=== PATIENT | female | born 2000 | race Caucasian/White ===

== ENCOUNTER → 2022-10-25 | Outpatient (CLI) | payer OTHER, SELFPAY ==
[2022-10-29 00:07] LABS: Chlamydia By Nucleic Acid AMP Negative (Negative); Gonococcus By Nucleic Acid AMP Negative (Negative)
== END | disposition home or self-care (01) ==
LOC: LABSPEC 16:00
PROVIDERS: Referring Provider Obstetrics & Gynecology; Visit Provider Obstetrics & Gynecology
DX: Z34.90 Encounter for supervision of normal pregnancy, unspecified, unspecified trimester (principal); Z3A.00 Weeks of gestation of pregnancy not specified
CPT/HCPCS: 87086; 87088; 87491; 87591

== ENCOUNTER → 2022-11-22 | Outpatient (CLI) | payer OTHER, SELFPAY ==
[2022-11-22 17:17] LABS: Absolute Lymphocyte Count 3.55 X10^3/uL (0.83-4.51); Absolute Neutrophil Count 8.1 X10^3/uL (2.0-7.7); Basophil# 0.03 X10^3/uL; Basophil% 0.2 % (0-1); Eosinophil# 0.15 X10^3/uL; Eosinophils% 1.2 % (0-5); Hematocrit 42.5 % (37-47); Lymphocyte # 3.55 X10^3/ul (0.83-4.51); Lymphocyte % 28.3 % (19-41); Mean Corp Hgb Conc 32.9 g/dL (32-36); Mean Corpuscular Hgb 28.3 pg (27.0-32.0); Mean Corpuscular Volume 85.9 fL (81-99); Mean Platelet Vol. 10.2 fl (6.2-12.0); Monocyte# 0.71 X10^3/uL; Monocyte% 5.7 % (0-10); NRBC Flagged by Analyzer 0 % (0-5); Neutrophil # 8.05 X10^3/uL (2.7-7.7); Neutrophil % 64.3 % (47-70); Platelet Count 285 K/mm3 (150-450); RBC Distribution Width CV 12.8 % (11.6-14.6); RBC Distribution Width SD 39.7 fl (35.1-43.9); Red Blood Count 4.95 M/mm3 (4.2-5.4); White Blood Count 12.5 K/mm3 (4.4-11.0)
[2022-11-22 19:04] LABS: HIV - WCH Non-Reactive (Nonreactive); Hepatitis B Surface Antigen Non-Reactive (Nonreactive); Hepatitis C Antibody Non-Reactive (Nonreactive); Rubella IgG Non-Reactive (Nonreactive); Syphilis Antibodies Non-reactive
== END | disposition home or self-care (01) ==
LOC: LAB 15:40
PROVIDERS: Referring Provider Obstetrics & Gynecology; Visit Provider Obstetrics & Gynecology
DX: Z34.90 Encounter for supervision of normal pregnancy, unspecified, unspecified trimester (principal); Z3A.00 Weeks of gestation of pregnancy not specified
CPT/HCPCS: 36415; 85025; 86703; 86762; 86780; 86803; 86850; 86900; 86901; 87340

== ENCOUNTER 2023-03-03 16:06 | Outpatient (CLI) | payer OTHER, SELFPAY ==
[2023-03-03 16:27] VITALS: BP 113/76; PULSE 79; PULSE 80; TEMP 36.9; O2SAT 100
--- NOTE | 2023-03-03 16:37 | US_ITS ---
STUDY: SECOND AND THIRD TRIMESTER OBSTETRICAL ULTRASOUND - LIMITED REASON FOR EXAM: Female, 22 years old well being LMP: Not provided. PRIOR ULTRASOUND: No relevant prior comparison study available TECHNIQUE: Transabdominal and Transvaginal sonographic evaluation of the pelvis. TECHNICAL QUALITY: Adequate. FINDINGS: There is a single intrauterine fetus. The fetus is in a cephalic presentation. There is demonstrated cardiac activity with a heart rate of 141 bpm. There is a normal amniotic fluid volume. The largest amniotic fluid pocket measures 5.7 cm. The amniotic fluid index (JARED) is 16.3 cm. The placenta is posterior and low lying but not previa in location. This is 1.8 cm from the cervix. Grade 1 placenta. The cervix measures 3.8 cm in length. BIOMETRY: Not performed. IMPRESSION: Single live intrauterine with normal amniotic fluid index. Posterior low-lying placenta measuring 1.8 cm from the cervix. Electronically Signed: Rajesh Matthews MD at 18:36 EDT , STUDY: SECOND AND THIRD TRIMESTER OBSTETRICAL ULTRASOUND - LIMITED REASON FOR EXAM: Female, 22 years old well being LMP: Not provided. PRIOR ULTRASOUND: No relevant prior comparison study available TECHNIQUE: Transabdominal and Transvaginal sonographic evaluation of the pelvis. TECHNICAL QUALITY: Adequate. FINDINGS: There is a single intrauterine fetus. The fetus is in a cephalic presentation. There is demonstrated cardiac activity with a heart rate of 141 bpm. There is a normal amniotic fluid volume. The largest amniotic fluid pocket measures 5.7 cm. The amniotic fluid index (JARED) is 16.3 cm. The placenta is posterior and low lying but not previa in location. This is 1.8 cm from the cervix. Grade 1 placenta. The cervix measures 3.8 cm in length. BIOMETRY: Not performed. US/OB Limited (No Biometrics) IMPRESSION: Single live intrauterine with normal amniotic fluid index. Posterior low-lying placenta measuring 1.8 cm from the cervix. Electronically Signed: Rajesh Matthews MD at 18:37 EDT ,
[2023-03-03 16:41] VITALS: BMI 23.2
[2023-03-03 16:54] LABS: Mucous, Urine 0 SEEN /hpf (<or=2+); Red Blood Cells-Urine 0 SEEN /hpf (0-5)
[2023-03-03 17:08] LABS: Color, Urine Yellow (Yellow); Glucose, Dipstick Normal (Normal); Ketone-Dipstick Negative (Negative); Leukocyte Esterase-Dipstick 25 /ul (Negative); Nitrite-Dipstick Negative (Negative); Occult Blood-Urine 250 /ul (Negative); Protein-Dipstick 30 mg/dl (Negative); Specific Gravity, Urine 1.025 (1.002-1.030); Urine Bilirubin Dipstick Negative (Negative); Urine Clarity Sl. Cloudy (Clear); Urine Urobilinogen Normal (Normal)
[2023-03-03 17:14] LABS: White Blood Cells 0-5 SEEN /hpf (0-5)
[2023-03-03 17:15] LABS: Bacteria 1+ /hpf (None Seen); Squamous Epithelial Cells - UA 5-10 SEEN /hpf (5-10)
--- NOTE | 2023-03-03 17:27 | OB.TRI.NOTE ---
HPI - General HPI Narrative SUZANNA BAUM, is a 22 y/o G1 P) @ 26 weeks 0d who presents to L&D with brown vaginal discharge after having sex today. She has a known placental previa and has been instructed to avoid intercourse earlier in her until a repeat ultrasound could be performed at 28 weeks. Ultrasound was ordered to look at the placental location Maternal Data Information NETTE Calculator Estimated Delivery Date Method Current WG Current Estimate 06/09/23 Ultrasound #1 26w 0d Other Estimates 06/06/23 LMP (Uncertain) 26w 3d PFSH PFSH Medical History (Updated 03/03/23 @ 17:[address] Daniella Bourgeois, DO) Placenta previa Home Medications PNV 153-FA 400 mcg-om3 35 mg-dha 25 mg-epa 5 mg-fish oil chew tablet tab PO 10/25/22 [History Last Taken 03/02/23] Allergy/AdvReac Type Severity Reaction Status Date / Time Penicillins Allergy Intermediate Hives Verified 03/03/23 16:40 prednisone AdvReac Other Verified 03/03/23 16:40 Family History Grandmother Breast cancer, Onset Age: 70 Maternal Great Grandma Diabetes Paternal Mother Family history of recurrent miscarriage Surgical History H/O arthroscopic knee surgery Social History adopted: No household members: significant other and family housing: house current occupational status: employed 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 pets and animals: Yes (not managing litterbox) pets and animals: cat(s) history of recent travel: No sexually active: Yes Smoking Status: Never smoker alcohol intake: never substance use type: does not use diet: lactose free well-balanced diet: rarely or never caffeine: Yes Type: coffee Number of servings: 1 eating out: 1-3 times/week during the past year weight has: remained stable what type of physical activity do you participate in: none leanna/mormon: None seatbelt use: sometimes do you feel safe at home: Yes additional social history: BF- Julio Cesar- [employer] History 1 Elective abortions Hx Para 0 Spontaneous abortions Hx # Term Pregnancies Ectopic pregnancies Hx # Pregnancies Multiple births # of living children Visit Details Expected Delivery Route/Plan Labor Preferences- CB/BF classes: [] labor support person: [] labor intervention preferences: [] pain management options preferred: [] cut cord/dad catch: [] : [] PP control planned: [] discussed possible routes of delivery and associated risks: [] special requests: [] Plans Covid status: [] Flu vaccine: [] Tdap vaccine: [] Rhogam: [] LARC form signed: [] Problem list reviewed and updated with the most current plan of care details and appropriate orders placed. Relevant counseling for the gestational age provided. Continue routine care and follow up unless otherwise noted in visit notes/problem list details OB Flowsheet Initial Weight: Not Recorded Date <del>?</del> EGA Weight BP Urine Prot <del>?</del> Glucose FHR FuHt Pres Dilation <del>?</del> Effaced St Visit Note 10/25/22 <del>?</del> 7w 4d 114 lb 128/83 Negative <del>?</del> Negative 170 <del>?</del> SM- CRL 1.3 cm NETTE determined because patient unsure of lmp 11/22/22 <del>?</del> 11w 4d 112 lb 4 oz 120/78 <del>?</del> 160 <del>?</del> SM- no vb cramping 12/20/22 <del>?</del> 15w 4d 115 lb 2 oz 129/78 Negative <del>?</del> Negative 154 <del>?</del> JV- bedside scan done today for patient request. no complaints. has anatomy scan scheduled. 01/17/23 <del>?</del> 19w 4d 116 lb 6 oz 111/67 Negative <del>?</del> Negative 140 <del>?</del> LC- no vb/lof. previa. work note provided for limitations. 02/28/23 <del>?</del> 25w 4d 129 lb 6 oz Negative <del>?</del> Negative 135 25 <del>?</del> LC- no lof/ctx/vb. good fm. no concerns today. will use fresh test for glucose. ROS Constitutional Constitutional: Reports systems reviewed and no addt'l complaints, except as documented Gastrointestinal Gastrointestinal: Denies bloating, constipation, cramping, diarrhea, nausea or vomiting Genitourinary Genitourinary: Reports other Details: Denies vaginal odor, vaginal bleeding, or vaginal discharge ; Denies difficulty urinating or flank pain Physical Exam HEENT normocephalic Resp normal respiratory effort and normal air movement no CVA tenderness Speculum Exam - Vagina: other dark brown blood that is clotted is present in the vagina. cervix closed an no bleeding coming from the cervix. Extremity normal to inspection General Extremity: edema bilateral (trace ) NST FHR Rate Baby A Baseline: 140 Variability:: Moderate Accelerations:: 15 x 15 Decelerations:: None NST Reactive:: Yes FHR Category:: Category I Assessment & Plan (1) Vaginal bleeding in patient after first trimester with placenta previa: (2) Placenta previa: COMMENT: posterior, grade 0. Repeat US @ 28 wks(03/18) (3) Rubella non-immune status, antepartum: COMMENT: offer MMR PP (4) Anxiety: COMMENT: no meds, counseling encouraged. (5) Supervision of high-risk : COMMENT: , NETTE 06/06/23 BF-Julio Cesar (6) : QUALIFIERS: Weeks of gestation: 25 weeks Qualified Code(s): Z3A.25 - 25 weeks gestation of COMMENT: nl anatomy, discussed genetic & carrier testing PLAN: Plan ultrasound shows the placental edge 1.61 cm from the cervix, cervix closed and 3.75 cm long spec exam is reassuring. no active bleeding present, one brown blood clot removed from vagina. plan to give celestone x 2 and bedrest at home for 24 hours. return to hospital if develops bright red bleeding or cramping. Charges/Coding Multi Select Codes Visit Charges Office Visit/Consults: 42993 OV L3 Est Urinary/Genital Urinary/Genital CPT Codes: 95252-41 non-stress test Interp
[2023-03-03] MEDS: Betamethasone/Betamethasone 30 MG/5 ML Vial 12 MG IM (18:10)
== END 2023-03-03 18:19 | disposition home or self-care (01) ==
LOC: WPOUT 16:08 → WP 16:08
PROVIDERS: Obstetrics & Gynecology; Referring Provider Registered Nurse; Visit Provider Registered Nurse
DX: O99.891 Other specified diseases and conditions complicating pregnancy (principal); N89.8 Other specified noninflammatory disorders of vagina; Z3A.26 26 weeks gestation of pregnancy; O44.02 Complete placenta previa NOS or without hemorrhage, second trimester; O99.342 Other mental disorders complicating pregnancy, second trimester; F41.9 Anxiety disorder, unspecified
CPT/HCPCS: 59025; 59050; 76815; 76817; 81001; 87086; 96372; J0702

== ENCOUNTER 2023-03-04 16:23 | Outpatient (CLI) | payer OTHER, SELFPAY ==
[2023-03-04 16:39] VITALS: BP 114/69; PULSE 82; TEMP 36.7
[2023-03-04 16:40] VITALS: BMI 23.3
[2023-03-04] MEDS: Betamethasone/Betamethasone 30 MG/5 ML Vial 12 MG IM (16:48)
--- NOTE | 2023-03-04 18:57 | OB.TRI.PN ---
Progress Notes Date of Service: 03/04/23 Progress Note: Hyun Kumar 22yr old female here for second dose of IM celestone injection Charges/Coding Multi Select Codes Urinary/Genital Urinary/Genital CPT Codes: No Charge Assessment & Plan (1) Vaginal bleeding in patient after first trimester with placenta previa: COMMENT: celestone given 03/03 and 03/04 (2) Placenta previa: COMMENT: posterior, grade 0. Repeat US @ 28 wks(03/18) (3) Rubella non-immune status, antepartum: COMMENT: offer MMR PP (4) Anxiety: COMMENT: no meds, counseling encouraged. (5) Supervision of high-risk : COMMENT: , NETTE 06/06/23 Pam (6) : QUALIFIERS: Weeks of gestation: 25 weeks Qualified Code(s): Z3A.25 - 25 weeks gestation of COMMENT: nl anatomy, discussed genetic & carrier testing
== END 2023-03-04 16:51 | disposition home or self-care (01) ==
LOC: WPOUT 16:28 → WP 16:28
PROVIDERS: Referring Provider Advanced Practice Midwife; Visit Provider Advanced Practice Midwife
DX: O44.02 Complete placenta previa NOS or without hemorrhage, second trimester (principal); Z3A.25 25 weeks gestation of pregnancy; O99.342 Other mental disorders complicating pregnancy, second trimester; F41.9 Anxiety disorder, unspecified
CPT/HCPCS: 96372; J0702

== ENCOUNTER → 2023-03-21 | Outpatient (CLI) | payer OTHER, SELFPAY ==
[2023-03-21 08:41] LABS: Absolute Lymphocyte Count 2.47 X10^3/uL (0.83-4.51); Absolute Neutrophil Count 6.3 X10^3/uL (2.0-7.7); Basophil# 0.02 X10^3/uL; Basophil% 0.2 % (0-1); Eosinophil# 0.11 X10^3/uL; Eosinophils% 1.2 % (0-5); Hematocrit 36.9 % (37-47); Hemoglobin 11.9 g/dL (12.0-15.0); Lymphocyte # 2.47 X10^3/ul (0.83-4.51); Lymphocyte % 26.3 % (19-41); Mean Corp Hgb Conc 32.2 g/dL (32-36); Mean Corpuscular Hgb 28.5 pg (27.0-32.0); Mean Corpuscular Volume 88.5 fL (81-99); Mean Platelet Vol. 9.9 fl (6.2-12.0); Monocyte# 0.46 X10^3/uL; Monocyte% 4.9 % (0-10); NRBC Flagged by Analyzer 0 % (0-5); Neutrophil # 6.26 X10^3/uL (2.7-7.7); Neutrophil % 66.8 % (47-70); Platelet Count 216 K/mm3 (150-450); RBC Distribution Width CV 13.9 % (11.6-14.6); RBC Distribution Width SD 44.6 fl (35.1-43.9); Red Blood Count 4.17 M/mm3 (4.2-5.4); White Blood Count 9.4 K/mm3 (4.4-11.0)
[2023-03-21 09:09] LABS: Glucose Challenge Gest 1H 50g 111 mg/dL (70-140)
[2023-03-21 09:58] LABS: HIV - WCH Non-Reactive (Nonreactive); Syphilis Antibodies Non-reactive
== END | disposition home or self-care (01) ==
PROVIDERS: Referring Provider Registered Nurse; Visit Provider Registered Nurse
DX: Z34.90 Encounter for supervision of normal pregnancy, unspecified, unspecified trimester (principal); Z3A.00 Weeks of gestation of pregnancy not specified
CPT/HCPCS: 36415; 82950; 85025; 86703; 86780; 86850; 86900; 86901

== ENCOUNTER → 2023-05-16 | Outpatient (CLI) | payer OTHER, SELFPAY ==
--- OUTSIDE RECORDS SUMMARY | 2023-05-16 15:21 | XMS RPT_ITS | CCD ---
Author Name Unknown Address [address] [place] [address] Organization [facility] Care Team Providers Care Scalper Operator Name Role Phone Francie Ibarra Unavailable Unavailable Francie Ibarra Unavailable Unavailable Francie Ibarra Unavailable Unavailable Glenny Luong Unavailable Unavailable BRUCE HELLER Attending Unavailab Dow, PHYSICIAN Primary Care Unavailable Sheron Mcduffie Unavailable Glenny Luong Unavailable [phone] Francie Ibarra Unavailable Keyla Weston Unavailable Unavailable Gaston Holt Unavailable Unavailable Unavailable Primary Care Provider UnavailJerry Wan Unavailable Ms. Gaston Holt Attending Chris Luong, MsMatteo [place] [facility] Unav ailable Jonathon, Ms. Gaston Navarrete Attending Chris Luong, MsMatteo [place] [facility] Unav ailable Dr. Jerry Underwood Attending Unavail able Cherise, MsMatteo [facility] Primary Care Unav ailable DALLAS DAVIS Referring UnavailTRUDI Hood Attending Unavailable DALLAS DAVIS Referring UnavailDALLAS Ramey Attending Unavailsanjeev e Allergies Allergy Classification Reported Allergen(s) Allergy Type Date of Onset Reaction(s) Facility (4 sources) apis mellifera venom allergy to substance [facility] Work Phone: (8 sources) predniSONE; Translations: [PREDNISONE] Drug Allergy 05-22-2021 Unknown [facility] Repository (3 sources) Penicillin Drug Allergy Other [facility] Medications Current Medications Medication Drug Class(es) Dates Sig (Normalized) Sig (Original) oral control (1 source) oral contr ol Quantity: 0 Refills: 0 Ordered: 02-May-2022 Deysi Asher Generic Substitution Allowed vitamin (1 source) vitamin Quantity: 0 Refills: 0 Ordered: 16-Oct-2022 Deysi Asher Generic Substitution Allowed Completed/Discontinued Medications Medication Drug Class(es) Dates Sig (Normalized) Sig (Original) ascorbic acid 500 mg oral capsule (1 source) Vitamin C take 1 capsule by mouth once daily Vitamin C 500 MG Oral Capsule Take 1 daily Refills: 0 DO Active Biotin (1 source) Biotin TABS Refi lls: 0 DO Active Calcium (1 source) Phosphate Binder, Calcium Calcium TABS Refills : 0 DO Active calcium carbonate 500 mg chewable tablet (3 sources) Tums 500 MG Oral Tablet Chewable Refills: 0 DO Active Ortho Tri-Cyclen (28) 0.18/0.215/0.25 MG-35 MCG TABS (1 source) Progestin, Estrogen Ortho Tri-Cyclen (28 ) 0.18/0.215/0.25 MG-35 MCG TABS Refills: 0 Active 1 ml medroxyPROGESTERone acetate 150 mg/ml injection (4 sources) Progestin Start: 02-16-20 inject 1 mL by intramuscular injection every three months MedroxyPROGESTERone Acetate 150 MG/ML Intramuscular Suspension INJECT 1 ML INTRAMUSCULARLY ONCE EVERY 3 MONTHS. Quantity: 1 Refills: 3 Francie Frausto Start : 15-Feb-2019 Active Milliliter nitrofurantoin, macrocrystals 25 mg / nitrofurantoin, monohydrate 75 mg oral capsule (1 source) Nitrofuran Antibacterial Start: 10-17-19 End: 10-23-19 take 1 capsule by mouth twice daily at mealtime Macrobid 100 mg oral capsule ; 1 cap(s) orally 2 times a day Quantity: 14 Refills: 0 Ordered: 16-Oct-2022 Gaston Holt Start: 16-Oct-2022 End: 22-Oct-2022 Generic Substitution Allowed Comments: Finish all this medication unless otherwise directed by prescriber.May discolor urine or feces.Take with food or milk. Problems Active Problems Problem Classification Problem Date Documented Date Episodic/Chronic Abdominal pain (1 source) Unspecified abdominal pain; Translations: [Unspecified abdominal pain] Onset: 10-16-2022 Episodic Anxiety disorders (4 sources) Anxiety disorder; Translations: [Anxiety disorder] Chronic Conditions associated with dizziness or vertigo (3 sources) Dizziness; Translations: [Dizziness and giddiness] 09-27-2021 Episodic Contraceptive and procreative management (3 sources) Contraception status; Translations: [Encounter for female control] Episodic Genitourinary symptoms and ill-defined conditions (1 source) Dysuria; Translations: [Dysuria] Onset: 10-16-2022 Episodic Headache; including migraine (4 sources) Refractory migraine without aura; Translations: [Intractable common migraine without aura] Chronic Headache; including migraine (1 source) Headache; including migraine; Translations: [Headache, unspecified] Onset: 05-02-2022 Menstrual disorders (4 sources) Menorrhagia; Translations: [Menorrhagia] Chronic Miscellaneous mental health disorders (1 source) Insomnia disorder related to another mental disorder; 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 Nausea and vomiting (1 source) Nausea; Translations: [Nausea] Onset: 10-16-2022 Episodic Nonspecific chest pain (2 sources) Chest pain; Translations: [Chest pain, unspecified] 11-25-2022 Episodic Other circulatory disease (1 source) Raynaud's phenomenon ; Translations: [Primary Raynaud's phenomenon] Chronic Other complications of (2 sources) Other specified related conditions, first trimester; Translations: [Oth related conditions, first trimester] Onset: 10-16-2022 Episodic Other connective tissue disease (4 sources) Synovial plica of knee; Translations: [Plica syndrome of knee] Episodic Other upper respiratory infections (2 sources) Acute upper respiratory infection; Translations: [Acute upper respiratory infections of unspecified site] 05-02-2022 Episodic Residual codes; unclassified (1 source) Less than 8 weeks gestation of ; Translations: [Less than 8 weeks gestation of ] Onset: 10-16-2022 Episodic Unclassified (2 sources) DIZZY 09-27-2021 Past or Other Problems Problem Classification Problem Date Documented Date Episodic/Chronic Influenza (1 source) Influenza due to other identified influenza virus with other respiratory manifestations; Translations: [Flu due to oth ident influenza virus w oth resp manifest] Onset: 05-02-2022 Episodic Malaise and fatigue (2 sources) Other malaise; Translations: [Other malaise] Onset: 05-02-2022 Episodic Other and unspecified benign neoplasm (4 sources) Multiple fibroadenomas of breast; Translations: [Multiple fibroadenomata of breast] NEGATED: Highlighted row has not occurred!Residual codes; unclassified (8 sources) Disease Episodic Results Test Name Value Interpretation Reference Range Facil ity Vital Signs Date Time Vital Sign Value Performing Clinician Facility 05-02-2022 12:58-0500 Body height 165 cm Sheron Mcduffie Other Phone: [facility] 05-02-2022 12:58-0500 Body temperature 98.78 [degF] Sheron Mcduffie Other Phone: [facility] 05-02-2022 12:58-0500 Diastolic blood pressure 82 mm[Hg] Sheron Mcduffie Other Phone: [facility] 05-02-2022 12:58-0500 Heart rate 100 /min Sheron Mcduffie Other Phone: [facility] 05-02-2022 12:58-0500 Respiratory rate 14 /min Sheron Mcduffie Other Phone: [facility] 05-02-2022 12:58-0500 SaO2% (BldA) [Mass fraction] 99 % Sheron Mcduffie Other Phone: [facility] 05-02-2022 12:58-0500 Systolic blood pressure 115 mm[Hg] Sheron Mcduffie Other Phone: [facility] 09-27-2021 19:47-0400 Body height 160 cm Sheron Mcduffie Other Phone: [facility] 09-27-2021 19:47-0400 Body temperature 98.06 [degF] Sheron Mcduffie Other Phone: [facility] 09-27-2021 19:47-0400 Diastolic blood pressure 84 mm[Hg] Sheron Mcduffie Other Phone: [facility] 09-27-2021 19:47-0400 Heart rate 78 /min Sheron Mcduffie Other Phone: [facility] 09-27-2021 19:47-0400 SaO2% (BldA) [Mass fraction] 100 % Sheron Mcduffie Other Phone: [facility] 09-27-2021 19:47-0400 Systolic blood pressure 148 mm[Hg] Sheron Mcduffie Other Phone: [facility] 07-19-2019 16:01-0400 BMI (Body Mass Index) 17.91 kg/m2 Francie Chatie [facility] Work Phone: 07-19-2019 16:01-0400 Body weight 48.08 kg Francierony Chatie [facility] Work Phone: 07-19-2019 16:01-0400 BP Diastolic 70 mm[Hg] Francie Chatie [facility] Work Phone: Encounters Encounter Date Encounter Type Care Provider Facility Start: 03-18-2023 End: 03-18-2023 ambulatory [facility] Start: 01-07-2023 End: 01-07-2023 ambulatory [facility] Start: 11-25-2022 End: 11-25-2022 Emergency department patient visit Jerry Underwood [facility] Emergency 01 Start: 10-28-2022 Telephone encounter Rukhsana carroll APRN.CNM Work Phone: OB/Gynecology Procedures Date Procedure Procedure Detail Performing Clinician Start: 07-19-2019 Follow-up visit Start: 03-12-2019 Follow-up visit Start: 02-15-2019 Follow-up visit Arthroscopy of knee Francie santos Plan of Treatment Date Care Activity Detail Author Start: 01-03-2023 Influenza vaccination INFLUENZ A (Season Ended) [facility] Start: 05-05-2022 DEPRESSION ASSESSMENT DEPRESSION ASS ESSMENT [facility] Start: 04-08-2022 Urine microalbumin profile DTAP,TDAP,TD (1 - Tdap) [facility] Start: 2020 CHLAMYDIA SCREENING (18-24) CHLAMYDIA SCREENING (18-24) [facility] Start: 2020 GC (GONORRHEA) SCREENING (18-24) GC (GONORRHEA) SCREENING (18-24) [facility] Start: 2020 HEPATITIS C SCREENING HEPATITIS C SC REENING [facility] Start: 2020 HIV SCREENING HIV SCREENING [facility] Start: 2016 PEDS TO ADULT TRANSITION ANNUAL ASSESSMENT PEDS TO ADULT TRANSITION ANNUAL ASSESSMENT [facility] Start: 2014 PEDS TO ADULT TRANSITION INITIAL DISCUSSION PEDS TO ADULT TRANSITION INITIAL DISCUSSION [facility] Start: 08-11-2011 HPV VACCINE (1 - 2-d ose series) HPV VACCINE (1 - 2-dose series) [facility] Start: 02-09-2003 COVID-19 VACCINE (#1) COVID-19 VACCI NE (#1) [facility] Start: 2002 HEPATITIS B (1 of 3 - 3-dose series) HEPATITIS B (1 of 3 - 3-dose series) [facility] Work Phone: NEGATED: Highlighted row has been ruled out! Planned Goals not documented [facility] Work Phone: Immunizations Immunization Date Immunization Notes Care Provider Alysha nguyen 01-16-2019 influenza, seasonal, injectable Francie Ibarra [facility] Work Phone: 10-24-2015 human papilloma viru s vaccine, quadrivalent Francierony Chatie [facility] Security Operations Specialist al Medicine Work Phone: 07-31-2015 hepatitis A vaccine, unspecified formulation Francie Chatie [facility] Inte rnal Medicine Work Phone: 07-31-2015 human papilloma viru s vaccine, quadrivalent Francierony Chatie [facility] Special[facility] al Medicine Work Phone: 01-03-2015 hepatitis A vaccine, unspecified formulation Francie Chatie [facility] Work Phone: 01-03-2015 human papilloma viru s vaccine, quadrivalent Francie Ibarra [facility] Medicine Work Phone: 01-03-2015 meningococcal polysaccharide (groups A, C, Y and W-135) diphtheria toxoid conjugate vaccine (MCV4P) Francie Ibarra [facility] Work Phone: 06-14-2014 tetanus toxoid, redu sage diphtheria toxoid, and acellular pertussis vaccine, adsorbed Francie Ibarra [facility] Work Phone: 12-27-2007 measles, mumps and r ubella virus vaccine Francie Ibarra [facility] Work Phone: 08-11-2007 hepatitis B vaccine, adult dosage Francie Ibarra [facility] Work Phone: 06-09-2007 diphtheria, tetanus toxoids and acellular pertussis vaccine Francie Ibarra [facility] Work Phone: 06-09-2007 measles, mumps and r ubella virus vaccine Francie Ibarra [facility] Work Phone: 06-09-2007 poliovirus vaccine, inactivated Francie Ibarra [facility] Work Phone: 06-09-2007 varicella virus vaccine Francie angel [facility] Work Phone: 03-19-2004 pneumococcal conjuga te vaccine, 13 valent Francie Ibarra [facility] Work Phone: 01-02-2004 pneumococcal conjuga te vaccine, 13 valent Francie Ibarra [facility] Medicine Work Phone: 12-27-2003 diphtheria, tetanus toxoids and acellular pertussis vaccine Francie Ibarra [facility] Work Phone: 12-27-2003 haemophilus influenz ae type b vaccine, PRP-OMP conjugate Francie Ibarra [facility] Work Phone: 08-16-2003 diphtheria, tetanus toxoids and acellular pertussis vaccine Francie Ibarra [facility] Work Phone: 08-16-2003 haemophilus influenz ae type b vaccine, PRP-OMP conjugate Francie Ibarra [facility] Work Phone: 08-16-2003 hepatitis B vaccine, adult dosage Francie Ibarra [facility] Work Phone: 08-16-2003 poliovirus vaccine, inactivated Francie Ibarra [facility] Work Phone: 08-16-2003 varicella virus vaccine Francie angel [facility] Work Phone: 01-14-2003 diphtheria, tetanus toxoids and acellular pertussis vaccine Francie Ibarra [facility] Work Phone: 01-14-2003 haemophilus influenz ae type b vaccine, PRP-OMP conjugate Francie Ibarra [facility] Work Phone: 01-14-2003 poliovirus vaccine, inactivated Francie Ibarra [facility] Work Phone: 2002 diphtheria, tetanus toxoids and acellular pertussis vaccine Francie Ibarra [facility] Work Phone: 2002 haemophilus influenz ae type b vaccine, PRP-OMP conjugate Francie Ibarra [facility] Work Phone: 2002 hepatitis B vaccine, adult dosage Francie Ibarra [facility] Work Phone: 2002 poliovirus vaccine, inactivated Francie Ibarra [facility] Work Phone: Payers Date Payer Category Payer Private Health Insurance BEATRICE THOMAS [id number] 2022-Present [phone] [id number] [place] [id number] Open Access [id number] 2021 Worker's Compensation [id number] 2002 Unknown [id number] 2002 Unknown [id number] 2002 Unknown [id number] 2002 Unknown [id number] 2002 Unknown [id number] Unknown [id number] Private Health Insurance [id number] Unknown [employer] N\[employer] Social History Date Type Detail Facility Tobacco smoking consumption unknown [facility] Work Phone: Start: 2002 Sex Assigned At Not on file [facility] NEGATED: Highlighted row - - [facility] Work Phone: Functional Status Date Assessment Result Facility NEGATED: Highlighted row Functional performance Functional status health issues are not documented Disease [facility] Work Phone: Mental Status Date Assessment Result Facility NEGATED: Highlighted row Cognitive function [Interpretation] Cognitive status health issues are not documented Disease [facility] Work Phone: Note 10-28-2022 Telephone Encounter - Nimisha Luevano RN - 10/28/2022 3:36 PM EDT Note Date & Type Note Facility 10-28-2022 Miscellaneous Notes Formattin g of this note might be different from the original. Attempted to call patient for PNOB appointment but person answering phone said Hyun is busy, she cannot come to the phone right now . I was unsure if she was coming in or expecting a phone call. If patient comes in for PNOB visit , I will of course see her. If she calls back, I will try to work her back into the schedule documented in this encounter [facility] Summary Purpose Family History No Family History Records Found Grandfather Name Dates Details Family history of cardiac di sorder(V17.49, Z82.49) Status:Active Family history of hypertensi on(V17.49, Z82.49) Status:Active Grandmother Name Dates Details Family history of cardiac di sorder(V17.49, Z82.49) Status:Active Family history of hypertensi on(V17.49, Z82.49) Status:Active Family history of type 2 savage betes mellitus(V18.0, Z83.3) Status:Active great grandfather Name Dates Details Family history of Primary ma lignant neoplasm of brain(191.9, C71.9) Status:Active Grandparent Name Dates Details Family history of migraine h eadaches(V17.2, Z82.0) Status:Active aunt Name Dates Details Family history of Status:Active Family history of myocardial infarction(V17.3, Z82.49) Status:Active Mother Name Dates Details Family history of HPV infect ion(V18.8, Z83.1) Status:Active Father Name Dates Details Family history of migraine h eadaches(V17.2, Z82.0) Status:Active Family history of psychosis( V17.0, Z81.8) Status:Active Family history of Bipolar de pression(296.50, F31.9) Status:Active Brother Name Dates Details Family history of migraine h eadaches(V17.2, Z82.0) Status:Active Grandfather Name Dates Details Family history of type 2 savage betes mellitus(V18.0, Z83.3) Status:Active Family history of cardiac di sorder(V17.49, Z82.49) Status:Active Family history of hypertensi on(V17.49, Z82.49) Status:Active Grandmother Name Dates Details Family history of type 2 savage betes mellitus(V18.0, Z83.3) Status:Active Family history of cardiac di sorder(V17.49, Z82.49) Status:Active Family history of hypertensi on(V17.49, Z82.49) Status:Active great grandfather Name Dates Details Family history of Primary ma lignant neoplasm of brain(191.9, C71.9) Status:Active Grandparent Name Dates Details Family history of migraine h eadaches(V17.2, Z82.0) Status:Active aunt Name Dates Details Family history of Status:Active Family history of myocardial infarction(V17.3, Z82.49) Status:Active Mother Name Dates Details Family history of HPV infect ion(V18.8, Z83.1) Status:Active Father Name Dates Details Family history of migraine h eadaches(V17.2, Z82.0) Status:Active Family history of Bipolar de pression(296.50, F31.9) Status:Active Family history of psychosis( V17.0, Z81.8) Status:Active Brother Name Dates Details Family history of migraine h eadaches(V17.2, Z82.0) Status:Active Grandfather Name Dates Details Family history of cardiac di sorder(V17.49, Z82.49) Status:Active Family history of hypertensi on(V17.49, Z82.49) Status:Active Grandmother Name Dates Details Family history of cardiac di sorder(V17.49, Z82.49) Status:Active Family history of hypertensi on(V17.49, Z82.49) Status:Active Family history of type 2 savage betes mellitus(V18.0, Z83.3) Status:Active great grandfather Name Dates Details Family history of Primary ma lignant neoplasm of brain(191.9, C71.9) Status:Active Grandparent Name Dates Details Family history of migraine h eadaches(V17.2, Z82.0) Status:Active aunt Name Dates Details Family history of Status:Active Family history of myocardial infarction(V17.3, Z82.49) Status:Active Mother Name Dates Details Family history of HPV infect ion(V18.8, Z83.1) Status:Active Father Name Dates Details Family history of migraine h eadaches(V17.2, Z82.0) Status:Active Family history of psychosis( V17.0, Z81.8) Status:Active Family history of Bipolar de pression(296.50, F31.9) Status:Active Brother Name Dates Details Family history of migraine h eadaches(V17.2, Z82.0) Status:Active Grandfather Name Dates Details Family history of cardiac di sorder(V17.49, Z82.49) Status:Active Family history of hypertensi on(V17.49, Z82.49) Status:Active Family history of cerebrovas cular accident (CVA)(V17.1, Z82.3) Status:Active Grandmother Name Dates Details Family history of cardiac di sorder(V17.49, Z82.49) Status:Active Family history of hypertensi on(V17.49, Z82.49) Status:Active Family history of type 2 savage betes mellitus(V18.0, Z83.3) Status:Active great grandfather Name Dates Details Family history of Primary ma lignant neoplasm of brain(191.9, C71.9) Status:Active Grandparent Name Dates Details Family history of migraine h eadaches(V17.2, Z82.0) Status:Active aunt Name Dates Details Family history of Status:Active Family history of myocardial infarction(V17.3, Z82.49) Status:Active Mother Name Dates Details Family history of HPV infect ion(V18.8, Z83.1) Status:Active Father Name Dates Details Family history of migraine h eadaches(V17.2, Z82.0) Status:Active Family history of psychosis( V17.0, Z81.8) Status:Active Family history of Bipolar de pression(296.50, F31.9) Status:Active Brother Name Dates Details Family history of migraine h eadaches(V17.2, Z82.0) Status:Active Advance Directives No Advanced Directives Records FoundNo Advanced Directives Records FoundNo Advanced Directives Records FoundNo Advanced Directives Records FoundNo Advanced Directives Records FoundNo Advanced Directives Records FoundNo Advanced Directives Records Found Additional Source Comments INFORMATION SOURCE (unrecogn ized section and content) DATE CREATED AUTHOR AUTHOR'S ORGANIZ ATION 07/19/2019 [employer] DATE CREATED AUTHOR AUTHOR'S ORGANIZ ATION 06/06/2021 [facility] DATE CREATED AUTHOR AUTHOR'S ORGANIZ ATION 10/18/2022 [facility] DATE CREATED AUTHOR AUTHOR'S ORGANIZ ATION 10/29/2022 [facility] DATE CREATED AUTHOR AUTHOR'S ORGANIZ ATION 11/24/2022 [facility] DATE CREATED AUTHOR AUTHOR'S ORGANIZ ATION 03/19/2023 [facility] <item><item><item> Privacy Markings (unrecogniz ed section and content) Section Author: Chika Lloyd PROHIBITION ON REDISCLOSURE OF CONFIDENTIAL INFORMATION This notice accompanies a disclosure of information concerning a client made to you with the consent of such client. Section Author: Chika Lloyd PROHIBITION ON REDISCLOSURE OF CONFIDENTIAL INFORMATION This notice accompanies a disclosure of information concerning a client made to you with the consent of such client. Section Author: Chika Lloyd PROHIBITION ON REDISCLOSURE OF CONFIDENTIAL INFORMATION This notice accompanies a disclosure of information concerning a client made to you with the consent of such client. Source Comments (unrecognize d section and content) In the event this informatio n is protected by the Federal Confidentiality of Alcohol and Drug Abuse Patient Records regulations: The Federal rules restrict any use of the information to criminally investigate or prosecute any alcohol or drug abuse patient.[facility] Reason for Visit (unrecogniz ed section and content) FOR RECORDS PERTAINING TO PATIENTS WHO ARE OR HAVE BEEN ENROLLED IN A CHEMICAL DEPENDENCY/SUBSTANCEABUSE PROGRAM, SOME INFORMATION MAY BE OMITTED. This clinical summary was aggregated from multiple sources. Caution should be exercised in using it in the provision of clinical care. This summary normalizes information from multiple sources, and as a consequence, information in this document may materially change the coding, format and clinical context of patient data. In addition, data may be omitted in some cases. CLINICAL DECISIONS SHOULD BE BASED ON THE PRIMARY CLINICAL RECORDS. [facility]. provides no warranty or guarantee of the accuracy or completeness of information in this document.
[2023-05-16 16:15] LABS: Group B Strep DNA By PCR Negative (Negative); Specimen Processing Control PASS
[2023-05-16 16:16] LABS: Internal Control PASS; Probe Check PASS
== END | disposition home or self-care (01) ==
LOC: LABSPEC 14:04
PROVIDERS: Referring Provider Obstetrics & Gynecology; Visit Provider Obstetrics & Gynecology
DX: Z34.90 Encounter for supervision of normal pregnancy, unspecified, unspecified trimester (principal); Z3A.00 Weeks of gestation of pregnancy not specified
CPT/HCPCS: 87077; 87081; 87653

== ENCOUNTER → 2023-05-30 | Outpatient (CLI) | payer OTHER, SELFPAY ==
--- NOTE | 2023-05-30 12:12 | US_ITS ---
STUDY: SECOND AND THIRD TRIMESTER OBSTETRICAL ULTRASOUND - LIMITED REASON FOR EXAM: Female, 22 years old measuring small for gestational age LMP: September 02, 2022. PRIOR ULTRASOUND: Comparison is made with prior study dated March 03, 2023. TECHNIQUE: Transabdominal TECHNICAL QUALITY: Adequate. FINDINGS: There is a single intrauterine fetus. The fetus is in a cephalic presentation. There is demonstrated cardiac activity with a heart rate of 129 bpm. There is a normal amniotic fluid volume. The largest amniotic fluid pocket measures 4.9 cm. The amniotic fluid index (JARED) is 12.03 cm. The placenta is left lateral in location and is not low lying. The previously seen previously is not seen at this time. There are Grade 2 placental changes. The cervical length was not measured due to the head positioning. BIOMETRY: BPD: 8.46 cm: 34 weeks, 0 days HC: 32.37 cm: 36 weeks, 4 days AC: 33.72 cm: 37 weeks, 4 days FL: 6.52 cm: 33 weeks, 4 days Age by LMP: 38 weeks, 4 days. NETTE by LMP: June 09, 2023. age by current US: 35 weeks, 3 days. NETTE by current US: July 01, 2023. Estimated weight: 2845 grams, +/- 427 grams, 12.8 percentile. US/OB Limited With Biometrics IMPRESSION: gestation. 12.8 percentile for weight. Electronically Signed: Lux Noble MD at 15:29 EST ,
--- OUTSIDE RECORDS SUMMARY | 2023-05-30 12:26 | XMS RPT_ITS | CCD ---
Author Name Unknown Address [address] [place] [address] Organization [facility] Care Team Providers Care Speech Therapist Early Intervention Name Role Phone Francie Ibarra Unavailable Unavailable Francie Ibarra Unavailable Unavailable Francie Ibarra Unavailable Unavailable Glenny Luong Unavailable Unavailable BRUCE HELLER Attending Unavailab Dow, PHYSICIAN Primary Care Unavailable Sheron Mcduffie Unavailable Glenny Luong Unavailable [phone] Francie Ibarra Unavailable Keyla Weston Unavailable Unavailable Gaston Holt Unavailable Unavailable Unavailable Primary Care Provider UnavailJerry Wan Unavailable Ms. Gaston Holt Attending Chris Luong, MsMatteo Murrieta [facility] Unav ailable Jonathon, Ms. Gaston Navarrete Attending Chris Luong, MsMatteo Murrieta [facility] Unav ailable Dr. Jerry Underwood Attending Unavail able Cherise, MsMatteo Murrieta [facility] Primary Care Unav ailable DALLAS DAVIS Referring UnavailTRUDI Hood Attending Unavailable DALLAS DAVIS Referring UnavailDALLAS Ramey Attending Unavailsanjeev e Allergies Allergy Classification Reported Allergen(s) Allergy Type Date of Onset Reaction(s) Facility (4 sources) apis mellifera venom allergy to substance [facility] Work Phone: (8 sources) predniSONE; Translations: [PREDNISONE] Drug Allergy 05-22-2021 Unknown [facility] Repository (3 sources) Penicillin Drug Allergy Other [facility] Medications Current Medications Medication Drug Class(es) [...] height 165 cm Sheron Mcduffie Other Phone: [facility] 05-02-2022 12:58-0500 Body temperature 98.78 [degF] Sheron Mcduffie Other Phone: [facility] 05-02-2022 12:58-0500 Diastolic blood pressure 82 mm[Hg] Sheron Mcduffie Other Phone: [facility] 05-02-2022 12:58-0500 Heart rate 100 /min Sheron Mcduffie Other Phone: [facility] 05-02-2022 12:58-0500 Respiratory rate 14 /min Sheron Mcduffie Other Phone: [facility] 05-02-2022 12:58-0500 SaO2% (BldA) [Mass fraction] 99 % Sheron Mcduffie Other Phone: [facility] 05-02-2022 12:58-0500 Systolic blood pressure 115 mm[Hg] Sheron Mcduffie Other Phone: [facility] 09-27-2021 19:47-0400 Body height 160 cm Sheron Mcduffie Other Phone: [facility] 09-27-2021 19:47-0400 Body temperature 98.06 [degF] Sheron Mcduffie Other Phone: [facility] 09-27-2021 19:47-0400 Diastolic blood pressure 84 mm[Hg] Sheron Mcduffie Other Phone: [facility] 09-27-2021 19:47-0400 Heart rate 78 /min Sheron Mcduffie Other Phone: [facility] 09-27-2021 19:47-0400 SaO2% (BldA) [Mass fraction] 100 % Sheron Mcduffie Other Phone: [facility] 09-27-2021 19:47-0400 Systolic blood pressure 148 mm[Hg] Sheron Mcduffie Other Phone: [facility] 07-19-2019 16:01-0400 BMI (Body Mass Index) 17.91 kg/m2 Francie Chatie [facility] Work Phone: 07-19-2019 16:01-0400 Body weight 48.08 kg Francierony Chatie [facility] Work Phone: 07-19-2019 16:01-0400 BP Diastolic 70 mm[Hg] Francie Chatie [facility] Work Phone: Encounters Encounter Date Encounter Type Care Provider Facility Start: 03-18-2023 End: 03-18-2023 ambulatory [facility] Start: 01-07-2023 End: 01-07-2023 ambulatory [facility] Start: 11-25-2022 End: 11-25-2022 Emergency department patient visit Jerry Underwood [facility] Emergency 01 Start: 10-28-2022 Telephone encounter Rukhsana carroll APRN.CNM Work Phone: OB/Gynecology Procedures Date Procedure Procedure Detail Performing Clinician Start: 07-19-2019 Follow-up visit Start: 03-12-2019 Follow-up visit Start: 02-15-2019 Follow-up visit Arthroscopy of knee Francie santos Plan of Treatment Date Care Activity Detail Author Start: 01-03-2023 Influenza vaccination INFLUENZ A (Season Ended) [facility] Start: 05-05-2022 DEPRESSION ASSESSMENT DEPRESSION ASS ESSMENT [facility] Start: 04-08-2022 Urine microalbumin profile DTAP,TDAP,TD (1 - Tdap) [facility] Start: 2020 CHLAMYDIA SCREENING (18-24) CHLAMYDIA SCREENING (18-24) [facility] Start: 2020 GC (GONORRHEA) SCREENING (18-24) GC (GONORRHEA) SCREENING (18-24) [facility] Start: 2020 HEPATITIS C SCREENING HEPATITIS C SC REENING [facility] Start: 2020 HIV SCREENING HIV SCREENING [facility] Start: 2016 PEDS TO ADULT TRANSITION ANNUAL ASSESSMENT PEDS TO ADULT TRANSITION ANNUAL ASSESSMENT [facility] Start: 2014 PEDS TO ADULT TRANSITION INITIAL DISCUSSION PEDS TO ADULT TRANSITION INITIAL DISCUSSION [facility] Start: 08-11-2011 HPV VACCINE (1 - 2-d ose series) HPV VACCINE (1 - 2-dose series) [facility] Start: 02-09-2003 COVID-19 VACCINE (#1) COVID-19 VACCI NE (#1) [facility] Start: 2002 HEPATITIS B (1 of 3 - 3-dose series) HEPATITIS B (1 of 3 - 3-dose series) [facility] Work Phone: NEGATED: Highlighted row has been ruled out! Planned Goals not documented [facility] Work Phone: Immunizations Immunization Date Immunization Notes Care Provider Alysha nguyen 01-16-2019 influenza, seasonal, injectable Francie Ibarra [facility] Work Phone: 10-24-2015 human papilloma viru s vaccine, quadrivalent Francierony Chatie [facility] Inside [employer] Representative al Medicine Work Phone: 07-31-2015 hepatitis A vaccine, unspecified formulation Francie Chatie [facility] Inte rnal Medicine Work Phone: 07-31-2015 human papilloma viru s vaccine, quadrivalent Francierony Chatie [facility] [employer] Medicine Work Phone: 01-03-2015 hepatitis A vaccine, unspecified formulation Francie Chatie [facility] Inte rnal Medicine Work Phone: 01-03-2015 human papilloma viru s vaccine, quadrivalent Francie Ibarra [facility] Work Phone: 01-03-2015 meningococcal polysaccharide (groups A, C, Y and W-135) diphtheria toxoid conjugate vaccine (MCV4P) Francie Ibarra [facility] Work Phone: 06-14-2014 tetanus toxoid, redu sage diphtheria toxoid, and acellular pertussis vaccine, adsorbed Francie Ibarra [facility] Work Phone: 12-27-2007 measles, mumps and r ubella virus vaccine Francie Ibarra [facility] Work Phone: 08-11-2007 hepatitis B vaccine, adult dosage Francie Ibarra [facility] Work Phone: 06-09-2007 diphtheria, tetanus toxoids and acellular pertussis vaccine Francie Ibarra [facility] Work Phone: 06-09-2007 measles, mumps and r ubella virus vaccine Francie Ibarra [facility] Work Phone: 06-09-2007 poliovirus vaccine, inactivated Francie Ibarra [facility] Work Phone: 06-09-2007 varicella virus vaccine Francie angel [facility] Work Phone: 03-19-2004 pneumococcal conjuga te vaccine, 13 valent Francie Ibarra [facility] Work Phone: 01-02-2004 pneumococcal conjuga te vaccine, 13 valent Francie Ibarra [facility] Work Phone: 12-27-2003 diphtheria, tetanus toxoids and acellular pertussis vaccine Francie Ibarra [facility] Work Phone: 12-27-2003 haemophilus influenz ae type b vaccine, PRP-OMP conjugate Francie Ibarra [facility] Work Phone: 08-16-2003 diphtheria, tetanus toxoids and acellular pertussis vaccine Francie Ibarra [facility] Work Phone: 08-16-2003 haemophilus influenz ae type b vaccine, PRP-OMP conjugate Francie Ibarra [facility] Work Phone: 08-16-2003 hepatitis B vaccine, adult dosage Francie Ibarra [facility] Internal [facility] Work Phone: 08-16-2003 poliovirus vaccine, inactivated Francie Ibarra [facility] Work Phone: 08-16-2003 varicella virus vaccine Francie angel [facility] Work Phone: 01-14-2003 diphtheria, tetanus toxoids and acellular pertussis vaccine Francie Ibarra [facility] Work Phone: 01-14-2003 haemophilus influenz ae type b vaccine, PRP-OMP conjugate Francie Ibarra [facility] Internal [facility] Work Phone: 01-14-2003 poliovirus vaccine, inactivated Francie Ibarra [facility] Work Phone: 2002 diphtheria, tetanus toxoids and acellular pertussis vaccine Francie Ibarra [facility] Work Phone: 2002 haemophilus influenz ae type b vaccine, PRP-OMP conjugate Francie Ibarra [facility] Work Phone: 2002 hepatitis B vaccine, adult dosage Francie Ibarra [facility] Work Phone: 2002 poliovirus vaccine, inactivated Francie Ibarra [facility] Work Phone: Payers Date Payer Category Payer Private Health Insurance BEATRICE THOMAS [id number] 2022-Present [phone] [address] [place] [phone] Open Access [id number] 2021 Worker's Compensation [id number] 2002 Unknown [id number] 2002 Unknown [id number] 2002 Unknown [id number] 2002 Unknown [id number] 2002 Unknown [id number] Unknown [id number] Private Health Insurance [id number] Unknown [employer] N\[employer] Social History Date Type Detail Facility Tobacco smoking consumption unknown [facility] Work Phone: Start: 2002 Sex Assigned At Not on file [facility] NEGATED: Highlighted row - - [facility] Work Phone: Functional Status Date Assessment Result Facility NEGATED: Highlighted row Functional performance Functional status health issues are not documented Disease [facility] Work Phone: Mental Status Date Assessment Result Facility NEGATED: Highlighted row Cognitive function [Interpretation] Cognitive status health issues are not documented Disease [facility] Work Phone: Note 10-28-2022 Telephone Encounter - [...] DATE CREATED AUTHOR AUTHOR'S ORGANIZ ATION 07/19/2019 [employer] DATE CREATED AUTHOR AUTHOR'S ORGANIZ ATION 06/06/2021 [facility] DATE CREATED AUTHOR AUTHOR'S ORGANIZ ATION 10/18/2022 [facility] DATE CREATED AUTHOR AUTHOR'S ORGANIZ ATION 10/29/2022 [facility] DATE CREATED AUTHOR AUTHOR'S ORGANIZ ATION 11/24/2022 [facility] DATE CREATED AUTHOR AUTHOR'S ORGANIZ ATION 03/19/2023 [facility] <item><item><item> Privacy Markings (unrecogniz ed section and [...] or prosecute any alcohol or drug abuse patient.[facility] Reason for Visit (unrecogniz ed section and [...] BE BASED ON THE PRIMARY CLINICAL RECORDS. [facility]. provides no warranty or guarantee of the accuracy or completeness of information in this document.
== END | disposition home or self-care (01) ==
LOC: US 12:11
PROVIDERS: Referring Provider Obstetrics & Gynecology; Visit Provider Obstetrics & Gynecology
DX: O09.90 Supervision of high risk pregnancy, unspecified, unspecified trimester (principal); Z3A.00 Weeks of gestation of pregnancy not specified
CPT/HCPCS: 76816

== ENCOUNTER 2023-06-06 12:23 | Outpatient (CLI) | payer OTHER, SELFPAY ==
[2023-06-06] VITALS (10 sets, daily range): BP systolic 131–139; BP diastolic 79–84; PULSE 56–85; TEMP 36.3–36.6; O2SAT 91–100; BMI 26.2
--- OUTSIDE RECORDS SUMMARY | 2023-06-06 15:38 | XMS RPT_ITS | CCD ---
Author Name Unknown Address [address] [place] [address] Organization [facility] Care Team Providers Care Waiter/Waitress Name Role Phone Francie Ibarra Unavailable Unavailable Francie Ibarra Unavailable Unavailable Francie Ibarra Unavailable Unavailable Glenny Luong Unavailable Unavailable BRUCE HELLER Attending Unavailab Dow, PHYSICIAN Primary Care Unavailable Sheron Mcduffie Unavailable Glenny Luong Unavailable [phone] Francie Ibarra Unavailable Keyla Weston Unavailable Unavailable Gaston Holt Unavailable Unavailable Unavailable Primary Care Provider UnavailJerry Wan Unavailable Ms. Gaston Holt Attending Chris Luong, MsMatteo [place] [facility] Unav ailable Jonathon, Ms. Gaston Navarrete Attending Chris Luong, MsMatteo [place] Unav ailable Dr. Jerry Underwood Attending Unavail able Cherise, MsMatteo Murrieta [facility] Primary Care Unav ailable DALLAS DAVIS Referring UnavailTRUDI Hood Attending Unavailable DALLAS DAVIS Referring UnavailDALLAS Ramey Attending Unavailabl e Allergies Allergy Classification Reported Allergen(s) Allergy Type Date of Onset Reaction(s) Facility (4 sources) apis mellifera venom allergy to substance [facility] Work Phone: (8 sources) predniSONE; Translations: [PREDNISONE] Drug Allergy 05-22-2021 Unknown [facility] Repository (3 sources) Penicillin Drug Allergy Other [facility] Medications Current Medications Medication Drug Class(es) Dates [...] height 165 cm Sheron Mcduffie Other Phone: [facility] 05-02-2022 12:58-0500 Body temperature 98.78 [degF] Sheron Mcduffie Other Phone: [facility] 05-02-2022 12:58-0500 Diastolic blood pressure 82 mm[Hg] Sheron Mcduffie Other Phone: [facility] 05-02-2022 12:58-0500 Heart rate 100 /min Sheron Mcduffie Other Phone: [facility] 05-02-2022 12:58-0500 Respiratory rate 14 /min Sheron Mcduffie Other Phone: [facility] 05-02-2022 12:58-0500 SaO2% (BldA) [Mass fraction] 99 % Sheron Mcduffie Other Phone: [facility] 05-02-2022 12:58-0500 Systolic blood pressure 115 mm[Hg] Sheron Mcduffie Other Phone: [facility] 09-27-2021 19:47-0400 Body height 160 cm Sheron Mcduffie Other Phone: [facility] 09-27-2021 19:47-0400 Body temperature 98.06 [degF] Sheron Mcduffie Other Phone: [facility] 09-27-2021 19:47-0400 Diastolic blood pressure 84 mm[Hg] Sheron Mcduffie Other Phone: [facility] 09-27-2021 19:47-0400 Heart rate 78 /min Sheron Mcduffie Other Phone: [facility] 09-27-2021 19:47-0400 SaO2% (BldA) [Mass fraction] 100 % Sheron Mcduffie Other Phone: [facility] 09-27-2021 19:47-0400 Systolic blood pressure 148 mm[Hg] Sheron Mcduffie Other Phone: [facility] 07-19-2019 16:01-0400 BMI (Body Mass Index) 17.91 kg/m2 Francie Chatie [facility] Work Phone: 07-19-2019 16:01-0400 Body weight 48.08 kg Francierony Chatie [facility] Work Phone: 07-19-2019 16:01-0400 BP Diastolic 70 mm[Hg] Francie Chatie [facility] Work Phone: Encounters Encounter Date Encounter Type Care Provider Facility Start: 03-18-2023 End: 03-18-2023 ambulatory [facility] Start: 01-07-2023 End: 01-07-2023 ambulatory [facility] Start: 11-25-2022 End: 11-25-2022 Emergency department patient visit Jerry Underwood [facility] Emergency 01 Start: 10-28-2022 Telephone encounter Rukhsana carroll APRN.CNM Work Phone: OB/Gynecology Procedures Date Procedure Procedure Detail Performing Clinician Start: 07-19-2019 Follow-up visit Start: 03-12-2019 Follow-up visit Start: 02-15-2019 Follow-up visit Arthroscopy of knee Francie santos Plan of Treatment Date Care Activity Detail Author Start: 01-03-2023 Influenza vaccination INFLUENZ A (Season Ended) [facility] Start: 05-05-2022 DEPRESSION ASSESSMENT DEPRESSION ASS ESSMENT [facility] Start: 04-08-2022 Urine microalbumin profile DTAP,TDAP,TD (1 - Tdap) [facility] Start: 2020 CHLAMYDIA SCREENING (18-24) CHLAMYDIA SCREENING (18-24) [facility] Start: 2020 GC (GONORRHEA) SCREENING (18-24) GC (GONORRHEA) SCREENING (18-24) [facility] Start: 2020 HEPATITIS C SCREENING HEPATITIS C SC REENING [facility] Start: 2020 HIV SCREENING HIV SCREENING [facility] Start: 2016 PEDS TO ADULT TRANSITION ANNUAL ASSESSMENT PEDS TO ADULT TRANSITION ANNUAL ASSESSMENT [facility] Start: 2014 PEDS TO ADULT TRANSITION INITIAL DISCUSSION PEDS TO ADULT TRANSITION INITIAL DISCUSSION [facility] Start: 08-11-2011 HPV VACCINE (1 - 2-d ose series) HPV VACCINE (1 - 2-dose series) [facility] Start: 02-09-2003 COVID-19 VACCINE (#1) COVID-19 VACCI NE (#1) [facility] Start: 2002 HEPATITIS B (1 of 3 - 3-dose series) HEPATITIS B (1 of 3 - 3-dose series) [facility] Work Phone: NEGATED: Highlighted row has been ruled out! Planned Goals not documented [facility] Work Phone: Immunizations Immunization Date Immunization Notes Care Provider Alysha nguyen 01-16-2019 influenza, seasonal, injectable Francie Ibarra [facility] Work Phone: 10-24-2015 human papilloma viru s vaccine, quadrivalent Francierony Chatie [facility] [employer] Medicine Work Phone: 07-31-2015 hepatitis A vaccine, unspecified formulation Francie Chatie [facility] rnal Medicine Work Phone: 07-31-2015 human papilloma viru s vaccine, quadrivalent Francierony Chatie [facility] [employer] Medicine Work Phone: 01-03-2015 hepatitis A vaccine, unspecified formulation Francie Chatie [facility] Work Phone: 01-03-2015 human papilloma viru s vaccine, quadrivalent Francie Ibarra [facility] Work Phone: 01-03-2015 meningococcal polysaccharide (groups A, C, Y and W-135) diphtheria toxoid conjugate vaccine (MCV4P) Francie Ibarra [facility] Work Phone: 06-14-2014 tetanus toxoid, redu sage diphtheria toxoid, and acellular pertussis vaccine, adsorbed Francie Ibarra [facility] Work Phone: 12-27-2007 measles, mumps and r ubella virus vaccine Francie Ibarra [facility] Work Phone: 08-11-2007 hepatitis B vaccine, adult dosage Francie Ibarra [facility] Work Phone: 06-09-2007 diphtheria, tetanus toxoids and acellular pertussis vaccine Francie Ibarra [facility] Work Phone: 06-09-2007 measles, mumps and r ubella virus vaccine Francie Ibarra [facility] Work Phone: 06-09-2007 poliovirus vaccine, inactivated Francie Ibarra [facility] Work Phone: 06-09-2007 varicella virus vaccine Francie angel [facility] Work Phone: 03-19-2004 pneumococcal conjuga te vaccine, 13 valent Francie Ibarra [facility] Work Phone: 01-02-2004 pneumococcal conjuga te vaccine, 13 valent Francie Ibarra [facility] Work Phone: 12-27-2003 diphtheria, tetanus toxoids and acellular pertussis vaccine Francie Ibarra [facility] Work Phone: 12-27-2003 haemophilus influenz ae type b vaccine, PRP-OMP conjugate Francie Ibarra [facility] Work Phone: 08-16-2003 diphtheria, tetanus toxoids and acellular pertussis vaccine Francie Ibarra [facility] Work Phone: 08-16-2003 haemophilus influenz ae type b vaccine, PRP-OMP conjugate Francie Ibarra [facility] Work Phone: 08-16-2003 hepatitis B vaccine, adult dosage Francie Ibarra [facility] Work Phone: 08-16-2003 poliovirus vaccine, inactivated Francie Ibarra [facility] Work Phone: 08-16-2003 varicella virus vaccine Francie angel [facility] Work Phone: 01-14-2003 diphtheria, tetanus toxoids and acellular pertussis vaccine Francie Ibarra [facility] Work Phone: 01-14-2003 haemophilus influenz ae type b vaccine, PRP-OMP conjugate Francie Ibarra [facility] Work Phone: 01-14-2003 poliovirus vaccine, inactivated Francie Ibarra [facility] Work Phone: 2002 diphtheria, tetanus toxoids and acellular pertussis vaccine Francie Ibarra [facility] Work Phone: 2002 haemophilus influenz ae type b vaccine, PRP-OMP conjugate Francie Ibarra [facility] Work Phone: 2002 hepatitis B vaccine, adult dosage Francie Ibarra [facility] Work Phone: 2002 poliovirus vaccine, inactivated Francie Ibarra [facility] Work Phone: Payers Date Payer Category Payer Private Health Insurance BEATRICE THOMAS [id number] 2022-Present [phone] [address] [place] [id number] Open Access [id number] 2021 Worker's Compensation [id number] 2002 Unknown [id number] 2002 Unknown [id number] 2002 Unknown [id number] 2002 Unknown [id number] 2002 Unknown [id number] Unknown [id number] Private Health Insurance [id number] Unknown [employer] N\[employer] Social History Date Type Detail Facility Tobacco smoking consumption unknown [facility] Work Phone: Start: 2002 Sex Assigned At Not on file [facility] NEGATED: Highlighted row - - [facility] Work Phone: Functional Status Date Assessment Result Facility NEGATED: Highlighted row Functional performance Functional status health issues are not documented Disease [facility] Work Phone: Mental Status Date Assessment Result Facility NEGATED: Highlighted row Cognitive function [Interpretation] Cognitive status health issues are not documented Disease [facility] Work Phone: Note 10-28-2022 Telephone Encounter [...] DATE CREATED AUTHOR AUTHOR'S ORGANIZ ATION 07/19/2019 [employer] DATE CREATED AUTHOR AUTHOR'S ORGANIZ ATION 06/06/2021 [facility] DATE CREATED AUTHOR AUTHOR'S ORGANIZ ATION 10/18/2022 [facility] DATE CREATED AUTHOR AUTHOR'S ORGANIZ ATION 10/29/2022 [facility] DATE CREATED AUTHOR AUTHOR'S ORGANIZ ATION 11/24/2022 [facility] DATE CREATED AUTHOR AUTHOR'S ORGANIZ ATION 03/19/2023 [facility] <item><item><item> Privacy Markings (unrecogniz ed section and [...] or prosecute any alcohol or drug abuse patient.[facility] Reason for Visit (unrecogniz ed section [...] BE BASED ON THE PRIMARY CLINICAL RECORDS. [facility] [employer] [facility]. provides no warranty or guarantee of the accuracy or completeness of information in this document.
--- NOTE | 2023-06-07 10:53 | OB.TRI.PN_ITS ---
Progress Notes Date of Service: 06/06/23 Progress Note: Patient presents for triage evaluation secondary to uterine contractions FHT: 120 Moderate variability reactive no decelerations category I tracing [place]: 2-3 minute Contractions Assessment and plan: no cervical change, Reactive NST, reassuring maternal and status patient discharged to home to follow-up for IOL on Friday for SGA. See problem list details for additional plan information. Charges/Coding Multi Select Codes Urinary/Genital Urinary/Genital CPT Codes: 46381-28 non-stress test Interp Assessment & Plan (1) Uterine contractions: COMMENT: 06/06- no cervical change. D/C home (2) Small for gestational age fetus: COMMENT: measuring 12th%, deliver 40 weeks (3) Rubella non-immune status, antepartum: COMMENT: offer MMR PP (4) Anxiety: COMMENT: no meds, counseling encouraged. (5) Supervision of high-risk : COMMENT: PRR , NETTE 06/06/23 girl Donte Orozco (6) : QUALIFIERS: Weeks of gestation: 39 weeks Qualified Code(s): Z3A.39 - 39 weeks gestation of COMMENT: gbs neg, nl anatomy, discussed genetic & carrier testing, nl growth
== END 2023-06-06 15:45 | disposition home or self-care (01) ==
LOC: WPOUT 12:24 → WP 12:24
PROVIDERS: Referring Provider Advanced Practice Midwife; Visit Provider Advanced Practice Midwife
DX: O47.1 False labor at or after 37 completed weeks of gestation (principal); Z3A.39 39 weeks gestation of pregnancy
CPT/HCPCS: 59025; 59050

== ENCOUNTER 2023-06-09 06:55 | Inpatient (IN) | payer OTHER, SELFPAY ==
[2023-06-09] VITALS (44 sets, daily range): BP systolic 124–175; BP diastolic 64–101; PULSE 60–102; RESP 12–18; TEMP 36.3–37.3; O2SAT 88–100; BMI 26.6
--- NOTE | 2023-06-09 | PLAC_PTH ---
PATHOLOGY RESULTS PATIENT: SUZANNA BAUM LOC: WP U#:[id number] AGE/SX: 22/F ROOM: WP007 RE06/09/[address]: Dr. Daniella Bourgeois DO : 2000 BED: 1 DIS: 06/11/2023 SPEC #: [id number] RECD: 06/09/23 22:33 STATUS: SHARI SALLY #: [id number] MANDA: 06/09/23 00:[address]: Daniella Bourgeois DEPT: SURGICAL PATHOLOGY RECD BY: Leodan Lester ENTERED: 06/10/23 07:27 SP TYPE: PLACENTA OTHR DR: No Primary Care Phys Tissues: Placenta, NOS Procedures: Surgery Specimen Level V HEADER OPERATION: Primary section PRE-OP DIAGNOSIS: Placental abruption suspected TISSUE SUBMITTED: Placenta MICROSCOPIC DIAGNOSIS Miranda placenta (382 gm): Umbilical cord - trivascular with no evidence of inflammation. Placental membranes - no pathologic change. Placental disc - foci of organizing intraparenchymal hemorrhage, Ignacio-Acosta change and mildly increased intraparenchymal fibrin plaques. AM:marianne 06/12/2023 MICROSCOPIC DESCRIPTION Slides are reviewed. GROSS DESCRIPTION SPECIMEN: PLACENTA / CLINICAL INFORMATION: A. Weight: 3.01 kg B. Gestational Age: 40 weeks C. Sex: Female PLACENTAL WEIGHT (POST FIXATION): 382 gm PLACENTAL DIMENSIONS: 17.0 x 13.0 x 3.0 cm PLACENTAL SHAPE: Usual ovoid PLACENTAL WEIGHT FOR GESTATIONAL AGE: Within 10-99th percentile MEMBRANES - Present A. Insertion: Marginal B. Site of rupture from edge: 6.0 cm from edge of placental disc C. Color of membrane: Mancini-modi D. Abnormalities: None UMBILICAL CORD - Present A. Color: Mancini-modi B. Insertion: Paracentral C. Length: 30.0 cm D. Diameter: 1.2 cm E. Number of vessels: Three F. Abnormalities: None PLACENTAL DISC - Present A. Color of surface: Mancini-modi B. surface abnormalities: None C. Maternal cotyledons: Intact with minimal tears. It is partially disrupted, however, appears to be complete. D. Attached retro placental clot: No clot E. Cut surface: Dark red and spongy F. Lesions: Sections reveal a focal area of hemorrhage measuring 1.0 cm in greatest dimension. G. Separate clot: Absent SECTIONS SUBMITTED: 1. Membrane roll 2. Cord, maternal end 3. Cord, end 4. Placental disc, and maternal surfaces 5. Placental disc, and maternal surfaces, area of hemorrhage 6. Placental disc, and maternal surfaces, area of hemorrhage SALENA:marianne 06/11/2023 TC:5 CPT: 51054
--- OUTSIDE RECORDS SUMMARY | 2023-06-09 07:04 | XMS RPT_ITS | CCD ---
Author Name Unknown Address [address] [place] [address] Organization [facility] Care Team Providers Care Atm Servicer Name Role Phone Francie Ibarra Unavailable Unavailable Francie Ibarra Unavailable Unavailable Francie Ibarra Unavailable Unavailable Glenny Luong Unavailable Unavailable BRUCE HELLER Attending Unavailab Dow, PHYSICIAN Primary Care Unavailable Sheron Mcduffie Unavailable Glenny Luong Unavailable [phone] Francie Ibarra Unavailable Keyla Weston Unavailable Unavailable Gaston Holt Unavailable Unavailable Unavailable Primary Care Provider UnavailJerry Wan Unavailable Ms. Gaston Holt Attending Chris Luong, MsMatteo Murrieta [facility] Unav ailable Jonathon, Ms. Gaston Navarrete Attending Chris Luong, MsMatteo Murrieta [facility] Unav ailable Dr. Jerry Underwood Attending Unavail able Cherise, MsMatteo Murrieta [facility] Primary Care Unav ailable DALLAS DAVIS Referring UnavailTRUDI Hood Attending Unavailable DALLAS DAVIS Referring UnavailDALLAS Ramey Attending Unavailsanjeev e Allergies Allergy Classification Reported Allergen(s) Allergy Type Date of Onset Reaction(s) Facility (4 sources) apis mellifera venom allergy to substance [facility] Work Phone: (8 sources) predniSONE; Translations: [PREDNISONE] Drug Allergy 05-22-2021 Unknown [facility] Repository (3 sources) Penicillin Drug Allergy Other [facility] Medications Current Medications Medication Drug Class(es) [...] height 165 cm Sheron Mcduffie Other Phone: [facility] 05-02-2022 12:58-0500 Body temperature 98.78 [degF] Sheron Mcduffie Other Phone: [facility] 05-02-2022 12:58-0500 Diastolic blood pressure 82 mm[Hg] Sheron Mcduffie Other Phone: [facility] 05-02-2022 12:58-0500 Heart rate 100 /min Sheron Mcduffie Other Phone: [facility] 05-02-2022 12:58-0500 Respiratory rate 14 /min Sheron Mcduffie Other Phone: [facility] 05-02-2022 12:58-0500 SaO2% (BldA) [Mass fraction] 99 % Sheron Mcduffie Other Phone: [facility] 05-02-2022 12:58-0500 Systolic blood pressure 115 mm[Hg] Sheron Mcduffie Other Phone: [facility] 09-27-2021 19:47-0400 Body height 160 cm Sheron Mcduffie Other Phone: [facility] 09-27-2021 19:47-0400 Body temperature 98.06 [degF] Sheron Mcduffie Other Phone: [facility] 09-27-2021 19:47-0400 Diastolic blood pressure 84 mm[Hg] Sheron Mcduffie Other Phone: [facility] 09-27-2021 19:47-0400 Heart rate 78 /min Sheron Mcduffie Other Phone: [facility] 09-27-2021 19:47-0400 SaO2% (BldA) [Mass fraction] 100 % Sheron Mcduffie Other Phone: [facility] 09-27-2021 19:47-0400 Systolic blood pressure 148 mm[Hg] Sheron Mcduffie Other Phone: [facility] 07-19-2019 16:01-0400 BMI (Body Mass Index) 17.91 kg/m2 Francie Chatie [facility] Internal [facility] Work Phone: 07-19-2019 16:01-0400 Body weight 48.08 kg Francierony Chatie [facility] Internal Medicine Work Phone: 07-19-2019 16:01-0400 BP Diastolic 70 mm[Hg] Francie Chatie [facility] Work Phone: Encounters Encounter Date Encounter Type Care Provider Facility Start: 03-18-2023 End: 03-18-2023 ambulatory [facility] Start: 01-07-2023 End: 01-07-2023 ambulatory [facility] Start: 11-25-2022 End: 11-25-2022 Emergency department patient visit Jerry Underwood [facility] Emergency 01 Start: 10-28-2022 Telephone encounter Rukhsana carroll APRN.CNM Work Phone: OB/Gynecology Procedures Date Procedure Procedure Detail Performing Clinician Start: 07-19-2019 Follow-up visit Start: 03-12-2019 Follow-up visit Start: 02-15-2019 Follow-up visit Arthroscopy of knee Francie santos Plan of Treatment Date Care Activity Detail Author Start: 01-03-2023 Influenza vaccination INFLUENZ A (Season Ended) [facility] Start: 05-05-2022 DEPRESSION ASSESSMENT DEPRESSION ASS ESSMENT [facility] Start: 04-08-2022 Urine microalbumin profile DTAP,TDAP,TD (1 - Tdap) [facility] Start: 2020 CHLAMYDIA SCREENING (18-24) CHLAMYDIA SCREENING (18-24) [facility] Start: 2020 GC (GONORRHEA) SCREENING (18-24) GC (GONORRHEA) SCREENING (18-24) [facility] Start: 2020 HEPATITIS C SCREENING HEPATITIS C SC REENING [facility] Start: 2020 HIV SCREENING HIV SCREENING [facility] Start: 2016 PEDS TO ADULT TRANSITION ANNUAL ASSESSMENT PEDS TO ADULT TRANSITION ANNUAL ASSESSMENT [facility] Start: 2014 PEDS TO ADULT TRANSITION INITIAL DISCUSSION PEDS TO ADULT TRANSITION INITIAL DISCUSSION [facility] Start: 08-11-2011 HPV VACCINE (1 - 2-d ose series) HPV VACCINE (1 - 2-dose series) [facility] Start: 02-09-2003 COVID-19 VACCINE (#1) COVID-19 VACCI NE (#1) [facility] Start: 2002 HEPATITIS B (1 of 3 - 3-dose series) HEPATITIS B (1 of 3 - 3-dose series) [facility] Work Phone: NEGATED: Highlighted row has been ruled out! Planned Goals not documented [facility] Work Phone: Immunizations Immunization Date Immunization Notes Care Provider Alysha nguyen 01-16-2019 influenza, seasonal, injectable Francie Ibarra [facility] Internal Medicine Work Phone: 10-24-2015 human papilloma viru s vaccine, quadrivalent Francierony Chatie [facility] [facility] Work Phone: 07-31-2015 hepatitis A vaccine, unspecified formulation Francie Chatie [facility]nal Medicine Work Phone: 07-31-2015 human papilloma viru s vaccine, quadrivalent Francierony Chatie [facility] Work Phone: 01-03-2015 hepatitis A vaccine, unspecified formulation Francie Chatie [facility] Work Phone: 01-03-2015 human papilloma viru s vaccine, quadrivalent Francie Ibarra [facility] Work Phone: 01-03-2015 meningococcal polysaccharide (groups A, C, Y and W-135) diphtheria toxoid conjugate vaccine (MCV4P) Francie Ibarra [facility] Work Phone: 06-14-2014 tetanus toxoid, redu sage diphtheria toxoid, and acellular pertussis vaccine, adsorbed Francie Ibarra [facility] Work Phone: 12-27-2007 measles, mumps and r ubella virus vaccine Francie Ibarra [facility] Work Phone: 08-11-2007 hepatitis B vaccine, adult dosage Francie Ibarra [facility] Work Phone: 06-09-2007 diphtheria, tetanus toxoids and acellular pertussis vaccine Francie Ibarra [facility] Work Phone: 06-09-2007 measles, mumps and r ubella virus vaccine Francie Ibarra [facility] Work Phone: 06-09-2007 poliovirus vaccine, inactivated Francie Ibarra [facility] Work Phone: 06-09-2007 varicella virus vaccine Francie angel [facility] Work Phone: 03-19-2004 pneumococcal conjuga te vaccine, 13 valent Francie Ibarra [facility] Work Phone: 01-02-2004 pneumococcal conjuga te vaccine, 13 valent Francie Ibarra [facility] Medicine Work Phone: 12-27-2003 diphtheria, tetanus toxoids and acellular pertussis vaccine Francie Ibarra [facility] Work Phone: 12-27-2003 haemophilus influenz ae type b vaccine, PRP-OMP conjugate Francie Ibarra [facility] Work Phone: 08-16-2003 diphtheria, tetanus toxoids and acellular pertussis vaccine Francie Ibarra [facility] Work Phone: 08-16-2003 haemophilus influenz ae type b vaccine, PRP-OMP conjugate Francie Ibarra [facility] Work Phone: 08-16-2003 hepatitis B vaccine, adult dosage Francie Ibarra [facility] Internal [facility] Work Phone: 08-16-2003 poliovirus vaccine, inactivated Francie Ibarra [facility] Work Phone: 08-16-2003 varicella virus vaccine Francie angel [facility] Work Phone: 01-14-2003 diphtheria, tetanus toxoids and acellular pertussis vaccine Francie Ibarra [facility] Work Phone: 01-14-2003 haemophilus influenz ae type b vaccine, PRP-OMP conjugate Francie Ibarra [facility] Work Phone: 01-14-2003 poliovirus vaccine, inactivated Francie Ibarra [facility] Work Phone: 2002 diphtheria, tetanus toxoids and acellular pertussis vaccine Francie Ibarra [facility] Work Phone: 2002 haemophilus influenz ae type b vaccine, PRP-OMP conjugate Francie Ibarra [facility] Work Phone: 2002 hepatitis B vaccine, adult dosage Francie Ibarra [facility] Work Phone: 2002 poliovirus vaccine, inactivated Francie Ibarra [facility] Work Phone: Payers Date Payer Category Payer Private Health Insurance BEATRICE THOMAS [id number] 2022-Present [phone] [id number] [place] [id number] Open Access [id number] 2021 Worker's Compensation [id number] 2002 Unknown [id number] 2002 Unknown [id number] 2002 Unknown [id number] 2002 Unknown [id number] 2002 Unknown [id number] Unknown [id number] Private Health Insurance [id number] Unknown [employer] N\[employer] Social History Date Type Detail Facility Tobacco smoking consumption unknown [facility] Work Phone: Start: 2002 Sex Assigned At Not on file [facility] NEGATED: Highlighted row - - [facility] Work Phone: Functional Status Date Assessment Result Facility NEGATED: Highlighted row Functional performance Functional status health issues are not documented Disease [facility] Work Phone: Mental Status Date Assessment Result Facility NEGATED: Highlighted row Cognitive function [Interpretation] Cognitive status health issues are not documented Disease [facility] Work Phone: Note 10-28-2022 Telephone Encounter - [...] DATE CREATED AUTHOR AUTHOR'S ORGANIZ ATION 07/19/2019 [employer] DATE CREATED AUTHOR AUTHOR'S ORGANIZ ATION 06/06/2021 [facility] DATE CREATED AUTHOR AUTHOR'S ORGANIZ ATION 10/18/2022 [facility] DATE CREATED AUTHOR AUTHOR'S ORGANIZ ATION 10/29/2022 [facility] DATE CREATED AUTHOR AUTHOR'S ORGANIZ ATION 11/24/2022 [facility] DATE CREATED AUTHOR AUTHOR'S ORGANIZ ATION 03/19/2023 [facility] <item><item><item> Privacy Markings (unrecogniz ed section [...] or prosecute any alcohol or drug abuse patient.[facility] Reason for Visit (unrecogniz ed section [...] BE BASED ON THE PRIMARY CLINICAL RECORDS. [facility] [employer] [facility]. provides no warranty or guarantee of the accuracy or completeness of information in this document.
[2023-06-09] MEDS: Lactated Ringers 1,000 ML 50 ML IV (10:30)
[2023-06-09] MEDS: Oxytocin 15 Units/NS 250ml 15 UNITS/250 ML IV.SOLN 2 UNITS IV (10:55)
[2023-06-09 11:01] LABS: Absolute Lymphocyte Count 3.19 X10^3/uL (0.83-4.51); Absolute Neutrophil Count 5.4 X10^3/uL (2.0-7.7); Basophil# 0.03 X10^3/uL; Basophil% 0.3 % (0-1); Eosinophil# 0.07 X10^3/uL; Eosinophils% 0.8 % (0-5); Hematocrit 36.4 % (37-47); Hemoglobin 11.8 g/dL (12.0-15.0); Lymphocyte # 3.19 X10^3/ul (0.83-4.51); Lymphocyte % 34.4 % (19-41); Mean Corp Hgb Conc 32.4 g/dL (32-36); Mean Corpuscular Hgb 27.2 pg (27.0-32.0); Mean Corpuscular Volume 83.9 fL (81-99); Mean Platelet Vol. 11.8 fl (6.2-12.0); Monocyte# 0.51 X10^3/uL; Monocyte% 5.5 % (0-10); NRBC Flagged by Analyzer 0 % (0-5); Neutrophil # 5.42 X10^3/uL (2.7-7.7); Neutrophil % 58.4 % (47-70); Platelet Count 186 K/mm3 (150-450); RBC Distribution Width CV 14.2 % (11.6-14.6); RBC Distribution Width SD 42.8 fl (35.1-43.9); Red Blood Count 4.34 M/mm3 (4.2-5.4); White Blood Count 9.3 K/mm3 (4.4-11.0)
--- NOTE | 2023-06-09 11:10 | HP.PCM.OB_ITS ---
HPI - General General Date of Admission: 06/09/23 HPI Narrative SUZANNA BAUM, is a 22 y/o @ 40 weeks 0 days who presents to L&D for IOL due to SGA. She was found to have some elevated blood pressures on Friday last week, however when evaluated on L&D pressures were normal and there were no signs of symptoms of pre-eclampsia. Today her pressures are elevated 140's-150's/80's-100 and her prot:cr ratio is 700's. Maternal Data Information NETTE Calculator Estimated Delivery Date Method Current WG Current Estimate 06/09/23 Ultrasound #1 40w 0d Other Estimates 06/06/23 LMP (Uncertain) 40w 3d PFSH PFSH Medical History (Updated 06/09/23 @ 09:54 by Loni Jacques) Anxiety Placenta previa Home Medications PNV 153-FA 400 mcg-om3 35 mg-dha 25 mg-epa 5 mg-fish oil chew tablet 1 tab PO DAILY 10/25/22 [History Last Taken 06/08/23] Allergy/AdvReac Type Severity Reaction Status Date / Time Penicillins Allergy Intermediate Hives Verified 06/09/23 07:35 prednisone AdvReac Other Verified 06/09/23 07:35 Family History Grandmother Breast cancer, Onset Age: 70 Maternal Great Grandma Diabetes Paternal Mother Family history of recurrent miscarriage Surgical History H/O arthroscopic knee surgery Social History adopted: No household members: significant other and family housing: house current occupational status: employed 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 pets and animals: Yes (not managing litterbox) pets and animals: cat(s) history of recent travel: No sexually active: Yes Smoking Status: Never smoker alcohol intake: never substance use type: does not use diet: lactose free well-balanced diet: rarely or never caffeine: Yes Type: coffee Number of servings: 1 eating out: 1-3 times/week during the past year weight has: remained stable what type of physical activity do you participate in: none leanna/worship: None seatbelt use: sometimes do you feel safe at home: Yes additional social history: BF- [employer]- [employer] History 1 Elective abortions Hx Para 0 Spontaneous abortions Hx # Term Pregnancies Ectopic pregnancies Hx # Pregnancies Multiple births # of living children Visit Details Expected Delivery Route/Plan Labor Preferences- CB/BF classes: discussed labor support person: [] labor intervention preferences: epidural pain management options preferred: epidural cut cord/dad catch: [] : wants PP control planned: [] discussed possible routes of delivery and associated risks: [] special requests: [] Plans Covid status: Flu vaccine: declines Tdap vaccine: yes Rhogam: O+ LARC form signed: talked about- unsure Problem list reviewed and updated with the most current plan of care details and appropriate orders placed. Relevant counseling for the gestational age provided. Continue routine care and follow up unless otherwise noted in visit notes/problem list details OB Flowsheet Initial Weight: Not Recorded Date -?-?-?-?-?-?-?-?-?-?-?-?- EGA Weight BP Urine Prot -?-?-?-?-?-?-?-?-?-?-?-?- Glucose FHR FuHt Pres Dilation -?-?-?-?-?-?-?-?-?-?-?-?- Effaced St Visit Note 10/25/22 -?-?-?-?-?-?-?-?-?-?-?-?- 7w 4d 114 lb 128/83 Negative -?-?-?-?-?-?-?-?-?-?-?-?- Negative 170 -?-?-?-?-?-?-?-?-?-?-?-?- SM- CRL 1.3 cm E DD determined because patient unsure of lmp 11/22/22 -?-?-?-?-?-?-?-?--?-?-?-?- 11w 4d 112 lb 4 oz 120/78 -?-?-?-?-?-?-?-?-?-?-?-?- 160 -?-?-?-?-?-?-?-?-?-?-?-?- SM- no vb crampi ng 12/20/22 -?-?-?-?-?-?-?-?-?-?-?-?- 15w 4d 115 lb 2 oz 129/78 Nega tive -?-?-?-?-?-?-?-?-?-?-?-?- Negative 154 -?-?-?-?-?-?-?-?-?-?-?-?- JV- bedside scan done today for patient request. no complaints. has anatomy scan scheduled. 01/17/23 -?-?-?-?-?-?-?-?-?-?-?-?- 19w 4d 116 lb 6 oz 111/67 Nega tive -?-?-?-?-?-?-?-?-?-?-?--?- Negative 140 -?-?-?-?-?-?-?-?-?-?-?-?- LC- no vb/lof. p revia. work note provided for limitations. 02/28/23 -?-?-?-?-?-?-?-?-?-?-?-?- 25w 4d 129 lb 6 oz Negative -?-?-?-?-?-?-?-?-?-?-?-?- Negative 135 25 -?-?-?-?-?-?-?-?-?-?-?-?- LC- no lof/ctx/v b. good fm. no concerns today. will use fresh test for glucose. 03/21/23 -?-?-?-?-?-?-?-?-?-?-?-?- 28w 4d 136 lb 2 oz 123/73 Nega tive -?-?-?-?-?-?-?-?-?-?-?-?- Negative 150 28 -?-?-?-?-?-?-?-?-?-?-?-?- KW-no vb/lof/ctx . good fm. repeat US resolved previa. KW-no vb/lof/ctx. good fm. r epeat US resolved previa. 28 week labs pending 04/04/23 -?-?-?-?-?-?-?-?-?-?-?-?- 30w 4d 140 lb 125/79 Negative -?-?-?-?-?-?-?-?-?-?-?-?- Negative 145 30 -?-?-?-?-?-?-?-?-?-?-?-?- KW-no vb/lof/ctx . good fm. Tdap today. Lar discussed and unsure of what she would like to do-discuss next visit. labs reviewed and normal. CB classes encouraged. 04/18/23 -?-?-?-?-?-?-?-?-?-?-?-?- 32w 4d 141 lb 4 oz 120/80 Nega tive -?-?-?-?-?-?-?-?-?-?-?-?- Negative 133 32 Cephalic -?-?-?-?-?-?-?-?-?-?-?-?- JV- no lof, vagi nal bleeding, or dec fm. larc signed. 05/02/23 -?-?-?-?-?-?-?-?-?-?-?-?- 34w 4d 145 lb 2 oz 112/77 Nega tive -?-?-?-?-?-?-?-?-?-?-?-?- Negative 140 34 Cephalic -?-?-?-?-?-?-?-?-?-?-?-?- LC- no lof/vb/ct x. good fm. discussed flu vaccine, declines today. 05/16/23 -?-?-?-?-?-?-?-?-?-?-?-?- 36w 4d 146 lb 128/83 Trace -?-?-?-?-?-?-?-?-?-?-?-?- Negative 140 36 Cephalic 0 -?-?-?-?-?-?-?-?-?-?-?-?- SM- no vb lof go od fm no reuglar ctx gbs done orietnation to l and d discussed 05/23/23 -?-?-?-?-?-?-?-?-?-?-?-?- 37w 4d 156 lb 115/75 Negative -?-?-?-?-?-?-?-?-?-?-?-?- Negative 140 37 Cephalic -?-?--?-?-?-?-?-?-?-?-?-?- kw-no vb/lof/reg ular ctx. declines VE today. GBS neg. 05/30/23 -?-?-?-?-?-?-?-?-?-?-?-?- 38w 4d 152 lb 136/87 Negative -?-?-?-?-?-?-?-?--?-?-?-?- Negative 145 36 Cephalic 1 .5 -?-?-?-?-?-?-?-?-?-?-?-?- 60 -2 JV- no lof , vaginal bleeding, or dec fm. measuring small - ordering pelvic ultrasound. 06/06/23 -?-?-?-?-?-?-?-?-?-?-?-?- 39w 4d 153 lb 4 oz 145/94 -?-?-?-?-?-?-?-?-?-?-?-?- 115 35 Cephalic 2 -?-?-?-?-?-?-?-?-?-?-?-?- 80 -1 kw-no vb/l of/ctx. good fm. kw-no vb/lof/ctx. good fm. A FI 15. kw-no vb/lof/ctx. good fm. m embrane sweep today. YUE assisted with scanning JARED 15. Repeat FHT 122 on US. ROS Constitutional Constitutional: Denies change in weight, fatigue, fever(s), headache(s), poor appetite or weakness Eyes Eyes: Denies blurry vision, change in vision, seeing flashes or spots in vision ENT HEENT: Denies dizziness, headache(s), loss taste/smell or sore throat Cardiovascular Cardiovascular: Denies chest pain, dizziness, dyspnea, irregular heart rhythm, leg edema, palpitations, rapid heart rate or vomiting Respiratory/Chest Respiratory/Chest: Denies chest tightness, cough, dyspnea or breast pain Gastrointestinal Gastrointestinal: Denies abdominal pain, anorexia, constipation, cramping, diarrhea, hemorrhoids, vomiting or weight changes Genitourinary Genitourinary: Denies dysuria, flank pain, genital lesions, genital pain, urinary frequency or urinary urgency Musculoskeletal Musculoskeletal: Denies back pain, difficulty walking, joint pain, limited range of motion, muscle cramps or numbness Integumentary Integumentary: Denies lesions or unusual bruising Neurologic Neurologic: Denies abnormal movements, abnormal speech, dizziness, numbness, seizure-like activity or syncope Psychiatric Psychiatric: Denies anxiety, behavioral changes, change in appetite, change in libido, cognitive impairment, confusion, depression, difficulty concentrating, hallucinations or suicidal thoughts Endocrine Endocrinology: Denies excessive sweating, polydipsia or polyuria Hematologic/Lymphatic Hematologic/Lymphatic: Denies easy bleeding, easy bruising or lymphadenopathy Allergic/Immunologic Allergic/Immunologic: Denies itchy eyes, lip swelling, seasonal rhinorrhea, rhinitis, throat swelling, tongue swelling, eczemia, wheezing or asthma Vital Signs Vital Signs Vital Signs: 06/09/23 07:33 06/09/23 07:33 06/09/23 07:33 Temperature Temperature Source Pulse Rate 88 Blood Pressure 135/85 H BP Systolic 135 BP Diastolic 85 Pulse Ox 99 06/09/23 07:38 06/09/23 07:38 06/09/23 10:01 Temperature 99.2 F H Temperature Source Temporal Pulse Rate Blood Pressure 144/85 H BP Systolic 144 BP Diastolic 85 Pulse Ox 06/09/23 10:01 06/09/23 10:01 06/09/23 10:02 Temperature Temperature Source Temporal Pulse Rate 75 Blood Pressure 142/83 H BP Systolic 142 BP Diastolic 83 Pulse Ox 06/09/23 10:02 06/09/23 10:01 06/09/23 10:02 Temperature 98.9 F Temperature Source Temporal Pulse Rate 68 Blood Pressure BP Systolic BP Diastolic Pulse Ox 06/09/23 10:03 06/09/23 10:03 06/09/23 10:02 Temperature 98.9 F Temperature Source Pulse Rate 77 Blood Pressure BP Systolic BP Diastolic Pulse Ox 99 06/09/23 11:02 06/09/23 11:02 06/09/23 11:01 Temperature Temperature Source Pulse Rate 73 Blood Pressure 150/88 H BP Systolic 150 BP Diastolic 88 Pulse Ox 98 06/09/23 11:02 06/09/23 11:02 06/09/23 11:02 Temperature Temperature Source Temporal Pulse Rate 70 Blood Pressure 149/90 H BP Systolic 149 BP Diastolic 90 Pulse Ox 06/09/23 11:02 06/09/23 11:18 06/09/23 11:18 Temperature 99.2 F H Temperature Source Pulse Rate 72 Blood Pressure 151/95 H BP Systolic 151 BP Diastolic 95 Pulse Ox 06/09/23 12:07 06/09/23 12:07 06/09/23 12:08 Temperature Temperature Source Temporal Pulse Rate 73 Blood Pressure 158/88 H BP Systolic 158 BP Diastolic 88 Pulse Ox 06/09/23 12:08 06/09/23 12:57 06/09/23 12:57 Temperature 98.8 F Temperature Source Pulse Rate 69 Blood Pressure 175/101 H BP Systolic 175 BP Diastolic 101 Pulse Ox 06/09/23 13:14 06/09/23 13:14 06/09/23 14:24 Temperature Temperature Source Pulse Rate 81 72 Blood Pressure 159/90 H BP Systolic 159 BP Diastolic 90 Pulse Ox 06/09/23 14:24 06/09/23 14:29 06/09/23 14:29 Temperature Temperature Source Pulse Rate 71 Blood Pressure BP Systolic BP Diastolic Pulse Ox 100 100 06/09/23 14:34 06/09/23 14:34 06/09/23 14:39 Temperature Temperature Source Pulse Rate 74 70 Blood Pressure BP Systolic BP Diastolic Pulse Ox 100 06/09/23 14:39 06/09/23 14:44 06/09/23 14:44 Temperature Temperature Source Pulse Rate 70 Blood Pressure BP Systolic BP Diastolic Pulse Ox 99 100 06/09/23 14:49 06/09/23 14:49 06/09/23 14:49 Temperature Temperature Source Pulse Rate 71 Blood Pressure 166/93 H BP Systolic 166 BP Diastolic 93 Pulse Ox 100 06/09/23 14:55 06/09/23 14:55 06/09/23 14:54 Temperature Temperature Source Pulse Rate 71 Blood Pressure 157/87 H BP Systolic 157 BP Diastolic 87 Pulse Ox 95 06/09/23 14:59 06/09/23 14:59 06/09/23 14:59 Temperature Temperature Source Pulse Rate 71 Blood Pressure 149/78 H BP Systolic 149 BP Diastolic 78 Pulse Ox 100 06/09/23 15:04 06/09/23 15:04 02/05/24 15:04 Temperature Temperature Source Pulse Rate 70 Blood Pressure 146/84 H BP Systolic 146 BP Diastolic 84 Pulse Ox 100 06/09/23 15:09 06/09/23 15:09 06/09/23 15:09 Temperature Temperature Source Pulse Rate 65 Blood Pressure 132/69 H BP Systolic 132 BP Diastolic 69 Pulse Ox 100 06/09/23 15:14 06/09/23 15:14 06/09/23 15:15 Temperature Temperature Source Pulse Rate 67 Blood Pressure 137/70 H BP Systolic 137 BP Diastolic 70 Pulse Ox 100 06/09/23 15:15 06/09/23 15:15 06/09/23 15:15 Temperature 97.7 F L Temperature Source Temporal Pulse Rate 63 Blood Pressure BP Systolic BP Diastolic Pulse Ox 06/09/23 15:20 06/09/23 15:20 06/09/23 15:19 Temperature Temperature Source Pulse Rate 63 Blood Pressure 141/75 H BP Systolic 141 BP Diastolic 75 Pulse Ox 100 06/09/23 15:24 06/09/23 15:24 06/09/23 15:24 Temperature Temperature Source Pulse Rate 60 60 Blood Pressure 124/69 H BP Systolic 124 BP Diastolic 69 Pulse Ox 06/09/23 15:24 06/09/23 15:29 06/09/23 15:29 Temperature Temperature Source Pulse Rate 64 Blood Pressure BP Systolic BP Diastolic Pulse Ox 100 100 06/09/23 15:31 06/09/23 15:31 06/09/23 15:34 Temperature Temperature Source Pulse Rate 60 Blood Pressure 129/64 H 128/67 H BP Systolic 129 128 BP Diastolic 64 67 Pulse Ox 06/09/23 15:34 06/09/23 15:34 06/09/23 15:35 Temperature Temperature Source Pulse Rate 64 69 Blood Pressure BP Systolic BP Diastolic Pulse Ox 100 06/09/23 15:35 06/09/23 16:09 06/09/23 16:09 Temperature Temperature Source Pulse Rate 65 Blood Pressure 150/80 H BP Systolic 150 BP Diastolic 80 Pulse Ox 88 06/09/23 16:09 06/09/23 16:09 Temperature 98.0 F Temperature Source Temporal Pulse Rate Blood Pressure BP Systolic BP Diastolic Pulse Ox Weight Weight: 155 lb 6.814 oz Body Mass Index (BMI) 26.6 Physical Exam Const alert, oriented x3, no apparent distress and healthy appearing General Appearance: cooperative; Negative for anxious HEENT normocephalic Face and Sinus: normal facial exam Eyes EOMs intact bilaterally and no scleral icterus General Eye: normal appearance of both eyes Neck full ROM and supple Lymph Lymphatic: no lymphadenopathy noted Chest Chest: abnormal inspection of the chest Resp normal respiratory effort Effort and Inspection: able to speak in complete sentences Cardio regular rate GI soft to palpation and non-tender Inspection: gravid Palpation: soft; Negative for tender external exam normal Amniotic Fluid: ROM+plus Back/Spine no CVA tenderness Extremity normal to inspection, full ROM and no clubbing, cyanosis or edema General Extremity: Negative for calf tenderness or edema Skin Lesions: no lesions Rashes: no rashes Psych mental status grossly normal Labs Labs Labs: Blood Type O POSITIVE Antibody Screen NEGATIVE Hct 36.4 % (37-47) L Hgb 11.8 g/dL (12.0-15.0) L Obstetrics Ultrasound Syphilis Total Ab Non-reactive Rubella IgG Antibody Non-Reactive (Nonreactive) Hep Bs Antigen Non-Reactive (Nonreactive) Hepatitis C Antibody Non-Reactive (Nonreactive) Chlamydia DNA ([facility]OVA) Negative (Negative) N.gonorrhoeae DNA ([facility]) Negative (Negative) HIV 1&2 Antibody Non-Reactive (Nonreactive) Glucose 1 Hr 50 gm 111 mg/dL (70-140) Group B Strep DNA Negative (Negative) Assessment & Plan (1) Small for gestational age fetus: COMMENT: measuring 12th%, deliver 40 weeks (2) Rubella non-immune status, antepartum: COMMENT: offer MMR PP (3) Anxiety: COMMENT: no meds, counseling encouraged. (4) Supervision of high-risk : COMMENT: PRR , NETTE 06/06/23 girl Sharondaisha Zeeshanvor (5) : QUALIFIERS: Weeks of gestation: 39 weeks Qualified Code(s): Z3A.39 - 39 weeks gestation of COMMENT: gbs neg, nl anatomy, discussed genetic & carrier testing, nl growth PLAN: Plan Patient presents IOL, plan management for with pitocin/AROM. Pain management: plans epidural. GBS negative. Management of any complications: none I have reviewed the [facility] and made any clinically relevant updates.
[2023-06-09 11:49] LABS: Syphilis Antibodies Non-reactive
--- NOTE | 2023-06-09 12:12 | PN_ITS ---
Progress Note late entry note: pt is comfortable on pitocon, she consents to AROM current tracing: FHT: Moderate variability reactive no decelerations category I tracing [place]: q 2-4 min Contractions cx: 2/80/-1, membranes ruptured with clear fluid return A/P: continue pitocin epidural next
[2023-06-09 12:53] LABS: AST(SGOT) 15 U/L (15-37); Alanine Aminotransfer ALT/SGPT 23 U/L (13-56); Creatinine, Serum 0.72 mg/dL (0.55-1.02); EST Glomerular Filtration Rate 109 mL/min (>60); Est Glom Filt Rate - Afr Amer 132 mL/min (>60); Estimated Creatinine Clearance 120.06 ml/min; Protein, Urine (Random) 79.2 mg/dL (<11.9); Protein:Creat Ratio 720 mg/g CRE (0-200); Uric Acid 5.5 mg/dL (2.6-6.0)
[2023-06-09 13:22] LABS: ALB/GLOB Ratio 0.8 RATIO (0.9-2.4); AST(SGOT) 25 U/L (15-37); Alanine Aminotransfer ALT/SGPT 18 U/L (13-56); Albumin, Serum 2.8 g/dL (3.2-5.0); Alkaline Phosphatase 189 U/L (45-117); Anion Gap 7 (5-15); BUN 13 mg/dL (7-18); BUN/Creat Ratio 17.8 RATIO (10-20); Calcium,Total 8.9 mg/dL (8.5-10.1); Chloride 108 mmol/L (98-107); Creatinine, Serum 0.73 mg/dL (0.55-1.02); EST Glomerular Filtration Rate 107 mL/min (>60); Est Glom Filt Rate - Afr Amer 129 mL/min (>60); Estimated Creatinine Clearance 118.42 ml/min; Globulin 3.6 g/dL (2.2-4.2); Glucose 92 mg/dL (74-106); Potassium 3.6 mmol/L (3.5-5.1); Protein, Total 6.4 g/dL (6.4-8.2); Sodium Level 136 mmol/L (136-145)
[2023-06-09] MEDS: LACTATED RINGERS 500 ML 999 ML IV ×2 (13:25→15:10)
[2023-06-09] MEDS: fentaNYL-bupivacaine (epidural) 100 ML BAG EPIDURAL (14:58)
[2023-06-09] MEDS: Clindamycin 900 MG/50 ML BAG 75 MG IV (17:52)
[2023-06-09] MEDS: Azithromycin 500 MG in Dextrose 5%-Water (250mL Bag) 250 ML 250 MG IV (18:00)
[2023-06-09] MEDS: Gentamicin IV 270 MG in Dextrose 5%-Water (50mL Bag) 50 ML 100 MG IVPB (18:08)
--- NOTE | 2023-06-09 18:14 | OP.PCM_ITS ---
Assessment & Plan (1) Placental abruption: (2) heart rate decelerations affecting management of mother: (3) Small for gestational age fetus: COMMENT: measuring 12th%, deliver 40 weeks (4) Rubella non-immune status, antepartum: COMMENT: offer MMR PP (5) Anxiety: COMMENT: no meds, counseling encouraged. (6) Supervision of high-risk : COMMENT: PRR , NETTE 06/06/23 janet Orozco (7) : QUALIFIERS: Weeks of gestation: 39 weeks Qualified Code(s): Z3A.39 - 39 weeks gestation of COMMENT: gbs neg, nl anatomy, discussed genetic & carrier testing, nl growth Maternal Data Information NETTE Calculator Estimated Delivery Date Method Current WG Current Estimate 06/09/23 Ultrasound #1 40w 0d Other Estimates 06/06/23 LMP (Uncertain) 40w 3d Final NETTE: 06/09/23 Final NETTE Source: US <20 weeks Gestational age: 40 weeks [place] Doctor Who Attended Delivery: Marietta Cho Details Operative Information Date of Procedure: 06/09/23 Pre-Operative Diagnosis: 22 y/o @ 40 weeks, pre-eclampsia, heart rate bradycardia, vaginal bleeding suspicious for placental abruption Post-Operative Diagnosis: 22 y/o @ 40 weeks, pre-eclampsia, heart rate bradycardia, vaginal bleeding suspicious for placental abruption Classification: Stat Procedure Type: low transverse fisheries specialist #1: Zohra Amor Type of Anesthesia: Epidural Antibiotic Given: Clindamycin 600mg IV x1 and Gentamicin 1.5mg/kg IV x1 and Zithromax 500 mg/5 mL X1 Drain: Garcia to straight drain Estimated Blood Loss: 400cc 1746 Procedure Start Time: 17:46 Procedure Stop Time: 18:10 Time of Delivery: 17:47 Findings Description of Procedure: Patient was noted to have dark red blood on her inner thighs and perineum. The baseline heart rate was somewhat difficult to determine. After hospital it was decided that the heart rate was possibly showing some late decelerations. However the timing of contractions were difficult to picker / packer and an IUPC was placed. Upon placement of the intrauterine pressure catheter [place] blood was noted in the tube. And the heart rate dropped to the 70s for several minutes there was an increase in the heart rate to 80s and 90s but did not return to the normal heart rate. The diagnosis of a likely placental abruption was made and the patient was brought for a stat section. Procedure: The patient was brought to the operating room where epidural anesthesia was found to be adequate. She was prepped and draped in the normal sterile fashion and was placed in a dorsal supine position with a leftward tilt. Pfannenstiel skin incision was made with a scalpel and carried through to the underlying layers. The fascia was nicked in the midline and extended laterally using Mosquera scissors. The anterior aspect of the fascia was grasped with Edin clamps and the underlying rectus muscles dissected off using the Metzenbaum scissors. The inferior aspect the fascia was also grasped with Edin clamps and the underlying rectus muscle dissected off with the Metzenbaum scissors. The rectus muscles were in the midline. Peritoneum was entered sharply. The uterus was identified and a bladder blade was inserted into the abdomen. Bladder flap was created off the uterus using Metzenbaum scissors. A transverse incision was made with a scalpel and extended laterally manually. The 's head was grasped with the help of my health care legal assistant and fundal pressure the infant was delivered through the uterine incision without difficulty. The mouth and nares were bulb suctioned. After a 30 second delay the cord was clamped and cut. The was handed off to the awaiting director business travel for routine assessment. Placenta delivered spontaneously with just some tension on the cord and without difficulty. The placenta appeared abrupted due to presence of dark blood and a mid placental bed laceration appearance. The uterus was exteriorized and cleared of all clots and debris. Incision was closed with an 0 Vicryl suture in a running locked fashion. Second layer of 1-0 monocryl suture was used in imbricating manner to create excellent closure and hemostasis. The uterus was returned to the abdomen. The gutters were cleared of all clots and debris. The peritoneum was closed in a pursestring pattern using a 3-0 Vicryl suture. This muscle was reapproximated with a 3-0 Vicryl. The fascia was closed with an [ 0 Vicryl] suture. Subcutaneous tissue layer was closed using a plain gut suture. The skin was closed with a 4-0 Monocryl subcuticular stitch. The skin was also sealed with surgical glue. The patient tolerated the procedure well sponge lap and needle counts were correct at each tissue closure plane and the patient is now being brought to the recovery room in stable condition Presentation: Positive for Vertex Amniotic Membrane Rupture Type: Artificial Time of Membrane Ruptured: 12:00 Amniotic Fluid Description: Clear Placental Delivery Description: Spontaneous Placenta Disposition: Sent to Pathology Cord Vessel Description: 3 Vessels Cord Entanglement: None Cord Gases: ABG and VBG A Gender: Female (1 minute): 9 (5 minute): 9 Delayed Cord Clamping: Yes Complications Risks of Surgery Discussed w/Patient: Bleeding, Anesthesia Risks, Infection, Need for Future C-Sections and Injury to surrounding structure(s) including bowel and bladder Multi Select Codes Urinary/Genital Urinary/Genital CPT Codes: 97632 Delivery global pkg
--- NOTE | 2023-06-09 18:25 | DCINST_ITS ---
Discharge Instructions Diet Discharge Diet: No restrictions Activity Discharge Activity: May Not Drive (for 2 weeks or while taking narcotic pain medications.), May Shower and May Take a Tub Bath (in 7 days.) May resume sexual activity in: 4-6 weeks Weight Bearing Status: Full weight bearing Lifting Restrictions: 20 pounds Dressing / Incision Call your doctor if your incision/area has: Continuous Slow Oozing, Sudden Increased Bleeding, Increased Pain/ Swelling, Increased Redness and Foul Smelling Discharge Call your doctor if you observe: Fever of 101 or Higher and Using more than 1 pad per hour Suture Line Care: Avoid Pulling/Pushing and Avoid Pinching/Bending Cleanse incision/area with: Soap & Water and Keep Dressing Clean & Dry Follow Up Care Please Follow Up With: Daniella Bourgeois DO When: Call [phone] to make an appointment for an incision check in 1-2 weeks. Test Results: Test results from this visit will be discussed in further detail at your follow- up appointment, if applicable. Discharge Plan Admission Admit Date/Time: 06/09/23 06:55 Primary Reason for Your Visit: section Attending Provider: Daniella Bourgeois Primary Care Provider: Care Physician,No Primary Discharge Orders/Prescriptions Prescriptions: No Action PNV no.[id number] 400 mcg-35 mg- 25 mg-5 mg tablet,chewable 1 tab PO DAILY Referrals / Follow Up: Care Physician,No Primary [Primary Care Provider] -
[2023-06-09] MEDS: Oxytocin 15 Units/NS 250ml 15 UNITS/250 ML IV.SOLN 83 UNITS IV (18:35)
[2023-06-09] MEDS: Ketorolac 30 MG/ML Syringe IV (19:37)
--- NOTE | 2023-06-09 19:54 | RAD_ITS ---
STUDY: X-RAY - ABDOMEN/PELVIS REASON FOR EXAM: Female, 22 years old. first count not done prior to c/s dt stat angelito TECHNIQUE: Single AP view of the abdomen / pelvis. COMPARISON: None. FINDINGS: Normal visualized lung bases. Gas-filled loops of bowel. The visualized liver, spleen and kidneys are grossly normal in size and morphology. Normal soft tissue structures. Normal visualized osseous structures. RAD/Abdomen Single View (Portable) IMPRESSION: Ileus Electronically Signed: Sb Craig MD at 20:09 EST ,
[2023-06-09] MEDS: NIFEdipine 30 MG Tablet PO (20:39)
--- NOTE | 2023-06-09 20:39 | NURSING ---
PILAR - LATE ENTRY Dr. Bourgeois and this RN went into pt's room to place IUPC at 1729 after evaluating FHR strip - FSE came off when Dr. Bourgeois attempting to place IUPC - New FSE and IUPC placed at 1733 - dark blood noted when placing them - hooked up FSE and noted FHR in the 70s - repositioned pt to the right side at 1734 - no improvement in FHR and more blood noted - AT 1735, Dr. Bourgeois called PILAR - this RN pulled staff assist and called furnace charger to call an PILAR - this RN obtained antibiotic orders - This RN and Maame Moreau unhooked monitors and ran pt to OR - see OR record.
--- NOTE | 2023-06-09 20:45 | NURSING ---
epidural catheter removed at this time, tip intact, pt tolerated well, band aid applied
[2023-06-09] MEDS: Acetaminophen 500 MG Tablet 1000 MG PO (21:16)
[2023-06-09] MEDS: Lactated Ringers 1,000 ML 100 ML IV (21:49)
[2023-06-09 22:38] LABS: Pathology Specimen OB SEE PATHOLOGY REPORT
[2023-06-10] VITALS (9 sets, daily range): BP systolic 124–135; BP diastolic 73–84; PULSE 64–78; RESP 14–18; TEMP 36.5–37.3; O2SAT 97–100
[2023-06-10] MEDS: Ketorolac 30 MG/ML Syringe IV ×3 (01:35→13:23)
[2023-06-10] MEDS: Acetaminophen 500 MG Tablet 1000 MG PO ×4 (02:41→21:03)
[2023-06-10 05:51] LABS: Hematocrit 29.9 % (37-47); Hemoglobin 9.8 g/dL (12.0-15.0); Mean Corp Hgb Conc 32.8 g/dL (32-36); Mean Corpuscular Hgb 27.5 pg (27.0-32.0); Mean Corpuscular Volume 83.8 fL (81-99); Mean Platelet Vol. 11.8 fl (6.2-12.0); Platelet Count 147 K/mm3 (150-450); RBC Distribution Width CV 14.5 % (11.6-14.6); RBC Distribution Width SD 43.6 fl (35.1-43.9); Red Blood Count 3.57 M/mm3 (4.2-5.4); White Blood Count 13.4 K/mm3 (4.4-11.0)
[2023-06-10] MEDS: 0.9% Saline Lock 10 ML Syringe IV ×2 (06:59→13:24)
--- NOTE | 2023-06-10 08:02 | PCM.PN.OB ---
Subjective Subjective Patient doing well without complaints. Tolerating PO. Ambulating and voiding without difficulty. Feeding well. Denies chest pain, shortness of breath, calf pain/swelling, fevers, chills, lightheadedness. Objective Data Objective Data Vital Signs: Vital Signs Temp Pulse Resp BP Pulse Ox O2 Del Method 99.1 F 68 16 125/73 H 100 Room Air 06/10/23 05:38 06/10/23 06:28 06/10/23 06:28 06/10/23 05:38 06/10/23 06:28 06/10/23 06:28 Oxygen Delivery Method Room Air Weight: 155 lb 6.814 oz Body Mass Index (BMI) 26.6 Intake & Output: Intake and Output for Last 24 Hours 06/08/23 06/09/23 06/10/23 23:59 23:59 23:59 Intake Total 2379.58 / 2379.58 843.33 / 843.33 Output Total 1200 / 1200 500 / 500 Balance 1179.58 / 1179.58 343.33 / 343.33 Lab / Micro Data Attestation: I reviewed the patient's lab results. 06/10/23 05:43 06/09/23 12:00 Labs: Laboratory Results - last 24 hr 06/09/23 10:30: WBC 9.3, RBC 4.34, Hgb 11.8 L, Hct 36.4 L, MCV 83.9, MCH 27.2, MCHC 32.4, RDW Std Deviation 42.8, RDW Coeff of Beth 14.2, Plt Count 186, MPV 11.8, Immature Gran % (Auto) 0.600, Neut % (Auto) 58.4, Lymph % (Auto) 34.4, [place] % (Auto) 5.5, Eos % (Auto) 0.8, Baso % (Auto) 0.3, Absolute Neuts (auto) 5.4, Absolute Lymphs (auto) 3.19, Nucleated RBC % 0, Syphilis Total Ab Non-reactive, Blood Type O POSITIVE, Antibody Screen NEGATIVE 06/09/23 12:00: Sodium 136, Potassium 3.6, Chloride 108 H, Carbon Dioxide 21.0, Anion Gap 7, BUN 13, Creatinine 0.72 06/09/23 12:00: Creatinine 0.73, Estim Creat Clear Calc 120.06 06/09/23 12:00: Estim Creat Clear Calc 118.42, Est GFR (MDRD) Af Amer 132 06/09/23 12:00: Est GFR (MDRD) Af Amer 129, Est GFR (MDRD) Non-Af 109 06/09/23 12:00: Est GFR (MDRD) Non-Af 107, BUN/Creatinine Ratio 17.8, Glucose 92, Uric Acid 5.5, Calcium 8.9, Total Bilirubin 0.50, AST 15 06/09/23 12:00: AST 25, ALT 23 06/09/23 12:00: ALT 18, Alkaline Phosphatase 189 H, Total Protein 6.4, Albumin 2.8 L, Globulin 3.6, Albumin/Globulin Ratio 0.8 L, U Random Total Protein 79.2 H, Urine Creatinine 110.00, Protein/Creatinin Ratio 720 H 06/10/23 05:43: WBC 13.4 H, RBC 3.57 L, Hgb 9.8 L, Hct 29.9 L, MCV 83.8, MCH 27.5, MCHC 32.8, RDW Std Deviation 43.6, RDW Coeff of Beth 14.5, Plt Count 147 L, MPV 11.8 Radiography Diagnostic Testing: Radiology Impression KUB X-Ray 06/09/23 19:54 IMPRESSION: Ileus Electronically Signed: Sb Craig MD at 20:09 EST Reading Location ID and State: [address] [place] [address] Tel , Service support , ROS Constitutional Constitutional: Reports systems reviewed and no addt'l complaints, except as documented; Denies anorexia or headache(s) Cardiovascular Cardiovascular: Reports systems reviewed and no addt'l complaints, except as documented; Denies dizziness, dyspnea, nausea or tachypnea Respiratory/Chest Respiratory/Chest: Reports systems reviewed and no addt'l complaints, except as documented; Denies cough, dyspnea, shortness of breath at rest or tachypnea Gastrointestinal Gastrointestinal: Reports systems reviewed and no addt'l complaints, except as documented; Denies abdominal pain, constipation or nausea Genitourinary Genitourinary: Reports systems reviewed and no addt'l complaints, except as documented; Denies burning urination, difficulty urinating, dysuria, urinary frequency or urinary incontinence Musculoskeletal Musculoskeletal: Reports systems reviewed and no addt'l complaints, except as documented Integumentary Integumentary: Reports systems reviewed and no addt'l complaints, except as documented Neurologic Neurologic: Reports systems reviewed and no addt'l complaints, except as documented; Denies abnormal speech, dizziness or headache(s) Psychiatric Psychiatric: Reports systems reviewed and no addt'l complaints, except as documented Endocrine Endocrinology: Reports systems reviewed and no addt'l complaints, except as documented Hematologic/Lymphatic Hematologic/Lymphatic: Reports systems reviewed and no addt'l complaints, except as documented Physical Exam Const alert, oriented x3 and no apparent distress Neck full ROM Resp normal respiratory effort, normal air movement and no retractions Effort and Inspection: able to speak in complete sentences and symmetric chest movement GI soft to palpation Inspection: incision intact Bladder / Kidney Exam: bladder normal to palpation Uterus Palpation: uterus fundus firm Extremity normal to inspection and full ROM Psych mental status grossly normal, thought process normal and cooperative Assessment & Plan (1) heart rate decelerations affecting management of mother: (2) Placental abruption: (3) Small for gestational age fetus: COMMENT: measuring 12th%, deliver 40 weeks (4) Rubella non-immune status, antepartum: COMMENT: offer MMR PP (5) Anxiety: COMMENT: no meds, counseling encouraged. (6) Supervision of high-risk : COMMENT: PRR , NETTE 06/06/23 girl Donte PILYJulio Cesar (7) : QUALIFIERS: Weeks of gestation: 39 weeks Qualified Code(s): Z3A.39 - 39 weeks gestation of COMMENT: gbs neg, nl anatomy, discussed genetic & carrier testing, nl growth (8) delivery delivered: PLAN: s/p LTCS PPD # 1 1. routine post care 2. breast feeding- support given 3. rh positive 4. rubella immune Charges/Coding Multi Select Codes Urinary/Genital Urinary/Genital CPT Codes: No Charge
[2023-06-10] MEDS: NIFEdipine 30 MG Tablet PO (09:16)
[2023-06-10] MEDS: Senna/Docusate Sodium 1 Tablet PO (15:06)
[2023-06-10] MEDS: MEASLES,MUMPS,RUBELLA VACC/PF 0.5 ML SC (15:07)
--- NOTE | 2023-06-10 15:56 | CASEMGMT ---
Social Work Assessment Labor and Delivery Unit Patient Address: [address] [place] [id number] Phone number: [phone] Date of Referral: 06/09/23 Time of Referral:? [id number] Referred By: Daniella Bourgeois Date of Intervention: ??06/10/23 Time of Intervention:? 1529 Reason for Referral:? parent an addict/ alcoholic Sw completed chart review and acknowledges social work consult entered due to concerns that parent of mother of baby (RAMANDEEP- Hyun) has been identified as having a substance use issue/ alcoholic. Sw presented to bedside and introduced self to MOB and father of baby (FOB- Julio Cesar). Sw explained sw role during hospitalization and completed psychosocial assessment. History obtained from: medical records, MOB and FOB Household composition: Currently residing in the family home is MOB, FOMissy, and now baby. Parents deny any housing concerns, reporting that their home is safe and secure Patient's parent/guardian status:? ?RAMANDEEP states that she and SANTI have been together for four years, they met while in high school and attending the [employer] [facility] together. NO concerns reported at this time regarding domestic violence or intimate partner violence. Medical History: ?RAMANDEEP is 22 year old female who is 1, para 0- now 1 following labor and delivery of . RAMANDEEP received routine care with [facility] during . RAMANDEEP presented to hospital for induction of labor on 06/09/23, PILAR was called and stat performed. Baby born girl, named Donte Cai was born on 06/09/23 at 40 weeks gestation weighing 6lb 10oz and her apgars were 9 and 9 at one and five minutes of life, respectfully. RAMANDEEP states that baby will be followed by [facility] in [place]. RAMANDEEP is breast feeding and states it is going ok, she does have a breast pump for home. Educational Status:? Both parents completed 12th grade and graduated. No college education. No concerns with reading, learning or comprehension. Financial Status: Both parents are gainfully employed outside of the home. 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 RAMANDEEP states that she is able to take 15 weeks off of work. Supplies:??RAMANDEEP states that she has obtained all necessary baby supplies, including: car seat, safe sleep space, clothes, diapers, wipes and a breast pump Childcare/Caregiver(s):? MOB states that she is the primary caregiver, along with FOB when he is not at work. When both parents are working baby will be watched by maternal grandma and paternal aunt. Transportation:?? Both parents have their drivers license and reliable means of transportation. No barriers at this time. Programs/Agencies Involved: ???Parents are not connected to any financial community supports as they are over income at this time. Children Services/Legal Issues:??? No history of Children's Services involvement, no issues or concerns warranting a referral to be made at this time. Behavioral Health Issues: ??Mental Health History:??FOB denies any mental health diagnoses, MOB states that she has been diagnosed with anxiety, is not prescribed any medications to assist with symptoms at this time. MOB states that her symptoms are manageable and do not interfere with every day living. ? Substance Use History:?MOB denies any substance use prior to or during . ? Family History:??MOB states that her father is an alcoholic. MOB reports that her dad will not be a caregiver to baby, and will only be around her when other people are present. ??? Drug Screens: ??No urine screens observed in chart review. Family/Social Stressors:? Parents deny any issues or concerns at this time. Support Systems: MOB states that both grandma's are their biggest supports. Depression/Shaken Baby/Safe Sleeping:? Sanjeev educated parents at length regarding signs and symptoms of baby blues and depression and anxiety. Sw explained that due to traumatic experience, and MOB mental health history she can be more susceptible to experiencing mental health symptoms during her period. MOB expressed understanding. Sw educated parents on shaken baby prevention and ABCs of safe sleep. Parents expressed understanding. Sw provided parents with literature to review on topics along with list of community resources, including counseling agencies/ mental health professionals that are local to parents. ASSESSMENT:? MOB and baby admitted following labor and delivery. MOB with mental health history positive for anxiety. MOB is not taking any medications to assist with symptoms of mental health issues, and is not connected to any mental health resources. MOB quiet during assessment, but did answer questions asked and maintained good eye contact. MOB observed to provide supportive and loving hands on care to baby. Parents have obtained all necessary baby supplies and have natural supports in place. PLAN:? MOB and baby to be discharged when medically ready. ?No other services requested or indicated. Cristian Campbell, REAL ESTATE SERVICES ADMINISTRATOR, PHYSICAL DIRECTOR
[2023-06-10] MEDS: Naproxen 500 MG Tablet PO (21:03)
[2023-06-11 01:13] VITALS: BP 114/76; PULSE 63; RESP 16; TEMP 36.4; O2SAT 99
[2023-06-11] MEDS: Acetaminophen 500 MG Tablet 1000 MG PO ×2 (03:16→10:02)
[2023-06-11] MEDS: Naproxen 500 MG Tablet PO ×2 (05:10→13:01)
--- NOTE | 2023-06-11 07:51 | PCM.PN.OB ---
Subjective Subjective Patient doing well without complaints. Tolerating PO. Ambulating and voiding without difficulty. Feeding well. Denies chest pain, shortness of breath, calf pain/swelling, fevers, chills, lightheadedness. Objective Data Objective Data Vital Signs: Vital Signs Temp Pulse Resp BP Pulse Ox O2 Del Method 97.5 F L 63 16 114/76 99 Room Air 06/11/23 01:13 06/11/23 01:13 06/11/23 01:13 06/11/23 01:13 06/11/23 01:13 06/11/23 01:13 Oxygen Delivery Method Room Air Weight: 155 lb 6.814 oz Body Mass Index (BMI) 26.6 Intake & Output: Intake and Output for Last 24 Hours 06/09/23 06/10/23 06/11/23 23:59 23:59 23:59 Intake Total 2379.58 / 2379.58 843.33 / 843.33 Output Total 1200 / 1200 1300 / 1300 Balance 1179.58 / 1179.58 -456.67 / -456.67 Lab / Micro Data 06/10/23 05:43 06/09/23 12:00 Physical Exam Const alert and oriented x3 HEENT normocephalic Eyes PERRL Neck full ROM Resp normal respiratory effort GI soft to palpation GI Narrative: FF below U. Dressing dry and intact Palpation: tender other (appropriately) Assessment & Plan (1) delivery delivered: COMMENT: 06/09/23 [place]. Plac abruption. JV (2) Rubella non-immune status, antepartum: COMMENT: offer MMR PP (3) Anxiety: COMMENT: no meds, counseling encouraged. PLAN: Plan s/p LTCS PPD # 2 1. routine post care 2. breast feeding- support given 3. rh positive 4. rubella nonimmune 5. home today
[2023-06-11 09:01] VITALS: BP 108/66; PULSE 77; RESP 16; TEMP 36.8
[2023-06-11] MEDS: Senna/Docusate Sodium 1 Tablet PO (10:02)
[2023-06-11] MEDS: NIFEdipine 30 MG Tablet PO (11:06)
== END 2023-06-11 13:55 | disposition home or self-care (01) | DRG 786 ==
PROVIDERS: Advanced Practice Midwife; Admitting Provider Obstetrics & Gynecology; Visit Provider Obstetrics & Gynecology
DX: O36.5930 Maternal care for other known or suspected poor fetal growth, third trimester, not applicable or unspecified (principal); O45.93 Premature separation of placenta, unspecified, third trimester; O14.94 Unspecified pre-eclampsia, complicating childbirth; O76 Abnormality in fetal heart rate and rhythm complicating labor and delivery; Z3A.40 40 weeks gestation of pregnancy; Z37.0 Single live birth
CPT/HCPCS: 59025; 59050; 74018; 80053; 82565; 82570; 84156; 84450; 84460; 84550; 85025; 85027; 86780; 86850; 86900; 86901; 88307; 99221; J7120; A4216; G0378; J2405

== ENCOUNTER → 2023-09-01 | Outpatient (CLI) | payer OTHER, SELFPAY ==
[2023-09-05 20:58] LABS: HPV Reflexed? NOT INDICATED
== END | disposition home or self-care (01) ==
LOC: LABSPEC 15:32
PROVIDERS: Referring Provider Nurse Practitioner Women's Health; Visit Provider Nurse Practitioner Women's Health
DX: Z12.4 Encounter for screening for malignant neoplasm of cervix (principal)
CPT/HCPCS: 88175; G0145